=== PATIENT | male | born 1945 | race Asian ===

== ENCOUNTER 2017-09-28 15:37 | Inpatient (IN) | payer MEDICARE ==
[~2017-09-28] VITALS: Ht 170.2 cm; Wt 82.8 kg
[~2017-09-28 15:37] MED LIST: ALBU90OI INH; ALLO100 PO; AMOCLA875 PO; ASPI325 PO; ASPI325EC PO; ASPI81EC PO; ATEN50 PO; ATOR10 PO; Adult Low Dose81 MG PO; Aldactone25 MG PO; BACL10 PO; Bactrim Ds Tab1 EACH PO; CARV25 PO; CEPH500 PO; CILO100 PO; CILO50 PO; CLOP75 PO; COLCRYS0.6 MG PO; CRUTCH3 MISC; Cipro500 MG PO; DOCU100 PO; FLUO10 PO; FURO20 PO; Flonase 0.05% N16 GM; GEMF600 PO; GUAIFENESIN1200 MG PO; Glucotrol Xl5 MG PO; HYDACE10B PO; HYDCHL25 PO; HYDR1TAB94 PO; Humulin N100 UNIT/1 SC; INDO50 PO; INSLI100I SC; INSU7030P SC; INSUASPI SC; INSULANPEN SC; LEVFLO500 PO; LOSA25; LOSA25 PO; LOVA40 PO; Lasix20 MG PO; Lovastatin10 MG; NAPR250 PO; Norco 5-325 Ta1 EACH PO; OMEP20ER PO; PIOG15; PIOG30 PO; POTA10T PO; Pepcid20 MG PO; Percocet 5-3251 EACH PO; ROXICODONE5 MG PO; SILD50TA; SIMV10 PO; SPIR25; SPIR25 PO; SULTRIDS PO; TESTOST CYP; TRAM50 PO; TRAZ100 PO; Tenormin25 MG PO; Ultram50 MG PO; Zithromax250 MG PO; Zocor40 MG PO; Zofran Odt4 MG SL
[2017-09-28 18:37] LABS: BASOPHILS ABSOLUTE AUTO 0.02 K/mm3 (0.00-0.23); BASOPHILS PERCENT AUTO 0 % (0-2); EOSINOPHILS ABSOLUTE AUTO 0.27 K/mm3 (0.00-0.68); EOSINOPHILS PERCENT AUTO 3 % (0-6); Hematocrit 44.1 % (37.0-53.0); Hemoglobin 14.2 g/dL (13.5-17.5); IMMATURE GRAN ABSOLUTE AUTO 0.03 K/mm3 (0.00-0.10); IMMATURE GRAN PERCENT AUTO 0 % (0-1); LYMPHOCYTES ABSOLUTE AUTO 1.04 K/mm3 (0.84-5.20); LYMPHOCYTES PERCENT AUTO 12 % (21-46); MONOCYTES ABSOLUTE AUTO 0.83 K/mm3 (0.16-1.47); MONOCYTES PERCENT AUTO 10 % (4-13); Mean Corpuscular HGB 30.6 pg (26.0-34.0); Mean Corpuscular HGB Conc 32.2 g/dL (31.5-36.5); Mean Corpuscular Volume 95 fL (80-100); Mean Platelet Volume 10.1 fL (9.1-12.4); NEUTROPHILS ABSOLUTE AUTO 6.46 K/mm3 (1.96-9.15); NEUTROPHILS PERCENT AUTO 75 % (41-73); Platelet Count 256 K/mm3 (150-400); RDW Coefficient Variation 13.3 % (11.7-14.2); RDW Standard Deviation 46.1 fL (35.1-46.3); Red Blood Cell Count 4.64 M/mm3 (4.30-5.90); White Blood Cell Count 8.65 K/mm3 (4.00-11.30)
[2017-09-28 18:40] LABS: Albumin, Blood 2.6 g/dL (3.4-5.0); Albumin/Globulin Ratio 0.6 (0.8-1.8); Bilirubin, Total 0.5 mg/dL (0.1-1.0); Bun/Creatinine Ratio 16.7 (12.0-20.0); Creatinine, Blood 1.32 mg/dL (0.60-1.20); Globulin, Blood 4.1 g/dL (2.2-4.0); Potassium, Blood 4.1 mmol/L (3.5-5.5); Total Protein, Blood 6.7 g/dL (6.4-8.2); Troponin I 0.077 ng/mL (0.000-0.040)
[2017-09-28 20:00] LABS: Influenza A Negative (NEGATIVE); Influenza B Negative (NEGATIVE)
[2017-09-29 05:21] LABS: BASOPHILS PERCENT AUTO 0 % (0-2); EOSINOPHILS PERCENT AUTO 0 % (0-6); Hematocrit 43.2 % (37.0-53.0); IMMATURE GRAN ABSOLUTE AUTO 0.01 K/mm3 (0.00-0.10); IMMATURE GRAN PERCENT AUTO 0 % (0-1); LYMPHOCYTES ABSOLUTE AUTO 0.46 K/mm3 (0.84-5.20); LYMPHOCYTES PERCENT AUTO 6 % (21-46); MONOCYTES ABSOLUTE AUTO 0.17 K/mm3 (0.16-1.47); MONOCYTES PERCENT AUTO 2 % (4-13); Mean Corpuscular HGB 30.6 pg (26.0-34.0); Mean Corpuscular HGB Conc 32.4 g/dL (31.5-36.5); Mean Corpuscular Volume 94 fL (80-100); Mean Platelet Volume 9.9 fL (9.1-12.4); NEUTROPHILS ABSOLUTE AUTO 7.28 K/mm3 (1.96-9.15); NEUTROPHILS PERCENT AUTO 92 % (41-73); Platelet Count 242 K/mm3 (150-400); RDW Coefficient Variation 13.3 % (11.7-14.2); RDW Standard Deviation 45.5 fL (35.1-46.3); Red Blood Cell Count 4.58 M/mm3 (4.30-5.90); White Blood Cell Count 7.92 K/mm3 (4.00-11.30)
[2017-09-29 05:38] LABS: Anion Gap 9 mmol/L (6-16); Blood Urea Nitrogen 26 mg/dL (8-24); Bun/Creatinine Ratio 20.6 (12.0-20.0); CO2, Blood 23 mmol/L (21-32); Calcium, Blood 8.3 mg/dL (8.5-10.1); Chloride, Blood 109 mmol/L (98-108); Creatinine, Blood 1.26 mg/dL (0.60-1.20); Glomerular Filtration Rate >60 (60-); Glucose, Blood 217 mg/dL (70-99); Potassium, Blood 4.4 mmol/L (3.5-5.5); Sodium, Blood 141 mmol/L (136-145); Troponin I 0.049 ng/mL (0.000-0.040)
[2017-09-30 04:52] LABS: BASOPHILS ABSOLUTE AUTO 0.03 K/mm3 (0.00-0.23); BASOPHILS PERCENT AUTO 0 % (0-2); EOSINOPHILS ABSOLUTE AUTO 0.24 K/mm3 (0.00-0.68); EOSINOPHILS PERCENT AUTO 2 % (0-6); Hematocrit 43.6 % (37.0-53.0); Hemoglobin 14.2 g/dL (13.5-17.5); IMMATURE GRAN ABSOLUTE AUTO 0.02 K/mm3 (0.00-0.10); IMMATURE GRAN PERCENT AUTO 0 % (0-1); LYMPHOCYTES ABSOLUTE AUTO 1.63 K/mm3 (0.84-5.20); LYMPHOCYTES PERCENT AUTO 15 % (21-46); MONOCYTES ABSOLUTE AUTO 0.76 K/mm3 (0.16-1.47); MONOCYTES PERCENT AUTO 7 % (4-13); Mean Corpuscular HGB 30.6 pg (26.0-34.0); Mean Corpuscular HGB Conc 32.6 g/dL (31.5-36.5); Mean Corpuscular Volume 94 fL (80-100); NEUTROPHILS ABSOLUTE AUTO 8.45 K/mm3 (1.96-9.15); NEUTROPHILS PERCENT AUTO 76 % (41-73); Platelet Count 259 K/mm3 (150-400); RDW Coefficient Variation 13.2 % (11.7-14.2); RDW Standard Deviation 45.2 fL (35.1-46.3); Red Blood Cell Count 4.64 M/mm3 (4.30-5.90); White Blood Cell Count 11.13 K/mm3 (4.00-11.30)
[2017-09-30 05:12] LABS: Bun/Creatinine Ratio 21.2 (12.0-20.0); Creatinine, Blood 1.89 mg/dL (0.60-1.20); Potassium, Blood 4.2 mmol/L (3.5-5.5)
[2017-10-01 06:03] LABS: Bun/Creatinine Ratio 25.9 (12.0-20.0); Calcium, Blood 8.5 mg/dL (8.5-10.1); Creatinine, Blood 2.12 mg/dL (0.60-1.20); Potassium, Blood 5.7 mmol/L (3.5-5.5)
[2017-10-01 11:47] LABS: Bun/Creatinine Ratio 29.1 (12.0-20.0); Calcium, Blood 8.4 mg/dL (8.5-10.1); Creatinine, Blood 2.06 mg/dL (0.60-1.20); Potassium, Blood 5.6 mmol/L (3.5-5.5)
[2017-10-01 12:15] LABS: PCO2 Arterial 51.9 mmHg (35-45); PO2 Arterial 64.7 mmHg (80-100)
[2017-10-02 10:47] LABS: Calcium, Blood 8.5 mg/dL (8.5-10.1); Creatinine, Blood 1.84 mg/dL (0.60-1.20); Potassium, Blood 4.7 mmol/L (3.5-5.5)
[2017-10-02] MEDS ORDERED: Zithromax500 MG PO (12:08)
[2017-10-02] MEDS ORDERED: LEVEMIR FL100 UNIT/1 SC (12:09)
[2017-10-02] MEDS ORDERED: FURO40 PO (12:11)
[2017-10-02] MEDS ORDERED: METO25ER PO (12:12)
[2017-10-02] MEDS ORDERED: PRAV20 PO (12:13)
[2017-10-03 10:02] LABS: Bun/Creatinine Ratio 25.6 (12.0-20.0); Calcium, Blood 8.6 mg/dL (8.5-10.1); Creatinine, Blood 1.68 mg/dL (0.60-1.20); Potassium, Blood 4.8 mmol/L (3.5-5.5)
[2017-10-03] MEDS ORDERED: ASPI81CH PO (15:07)
[2018-09-02] MEDS ORDERED: IBUP400 PO (19:55)
== END 2017-10-04 16:41 | disposition home or self-care (01) | DRG 291 ==
LOC: ER 15:37 → MEDS 19:21 → ER 21:40 → MEDS 21:44 → ENPENDDIS 10-03 10:00 → MEDS 10-04 09:25
PROVIDERS: Emergency Medicine; Hospitalist; Internal Medicine; Physician Assistant
DX: I13.0 Hypertensive heart and chronic kidney disease with heart failure and stage 1 through stage 4 chronic kidney disease, or unspecified chronic kidney disease (principal); I50.33 Acute on chronic diastolic (congestive) heart failure; J96.01 Acute respiratory failure with hypoxia; N17.9 Acute kidney failure, unspecified; N18.1 Chronic kidney disease, stage 1; E11.22 Type 2 diabetes mellitus with diabetic chronic kidney disease; N14.1 Nephropathy induced by other drugs, medicaments and biological substances; T50.2X5A Adverse effect of carbonic-anhydrase inhibitors, benzothiadiazides and other diuretics, initial encounter; F22 Delusional disorders; G47.30 Sleep apnea, unspecified; E87.5 Hyperkalemia; E78.5 Hyperlipidemia, unspecified; E11.51 Type 2 diabetes mellitus with diabetic peripheral angiopathy without gangrene; I35.0 Nonrheumatic aortic (valve) stenosis; Z59.0 Homelessness; Z91.14 Patient's other noncompliance with medication regimen; Z88.5 Allergy status to narcotic agent; Z91.013 Allergy to seafood; Z91.018 Allergy to other foods
CPT/HCPCS: 36415; 36600; 71046; 80048; 80053; 82803; 82947; 83036; 83880; 84145; 84484; 85025; 87070; 87205; 87804; 93005; 93010; 94640; 94660; 94760; 94762; 96374; 96375; 99285; C8929; J0456; J1650; J1815; J1940; J2405; J2930; J7050; Q9957

== ENCOUNTER 2017-10-06 06:56 | Inpatient (IN) | payer MEDICARE ==
[~2017-10-06] VITALS: Ht 170.2 cm; Wt 75.0 kg
[~2017-10-06 06:56] MED LIST changes: +ASPI81CH PO; +FURO40 PO; +LEVEMIR FL100 UNIT/1 SC; +METO25ER PO; +PRAV20 PO; +Zithromax500 MG PO
[2017-10-06 08:27] LABS: BASOPHILS PERCENT AUTO 0 % (0-2); EOSINOPHILS ABSOLUTE AUTO 0.02 K/mm3 (0.00-0.68); EOSINOPHILS PERCENT AUTO 0 % (0-6); Hematocrit 45.2 % (37.0-53.0); Hemoglobin 14.9 g/dL (13.5-17.5); IMMATURE GRAN ABSOLUTE AUTO 0.01 K/mm3 (0.00-0.10); IMMATURE GRAN PERCENT AUTO 0 % (0-1); LYMPHOCYTES ABSOLUTE AUTO 0.58 K/mm3 (0.84-5.20); LYMPHOCYTES PERCENT AUTO 12 % (21-46); MONOCYTES ABSOLUTE AUTO 0.49 K/mm3 (0.16-1.47); MONOCYTES PERCENT AUTO 11 % (4-13); Mean Corpuscular HGB 30.6 pg (26.0-34.0); Mean Corpuscular Volume 93 fL (80-100); NEUTROPHILS ABSOLUTE AUTO 3.58 K/mm3 (1.96-9.15); NEUTROPHILS PERCENT AUTO 77 % (41-73); Platelet Count 152 K/mm3 (150-400); RDW Standard Deviation 43.8 fL (35.1-46.3); Red Blood Cell Count 4.87 M/mm3 (4.30-5.90); White Blood Cell Count 4.68 K/mm3 (4.00-11.30)
[2017-10-06 08:45] LABS: Alanine Aminotransfer (ALT/SGP 75 U/L (12-78); Albumin, Blood 2.4 g/dL (3.4-5.0); Albumin/Globulin Ratio 0.6 (0.8-1.8); Alk Phos 114 U/L (50-136); Anion Gap 7 mmol/L (6-16); Aspartate Aminotrans (AST/SGOT 55 U/L (12-37); Bilirubin, Total 0.6 mg/dL (0.1-1.0); Blood Urea Nitrogen 22 mg/dL (8-24); Bun/Creatinine Ratio 18.5 (12.0-20.0); CO2, Blood 24 mmol/L (21-32); Calcium, Blood 7.9 mg/dL (8.5-10.1); Chloride, Blood 108 mmol/L (98-108); Creatinine, Blood 1.19 mg/dL (0.60-1.20); Globulin, Blood 4.1 g/dL (2.2-4.0); Glomerular Filtration Rate >60 (60-); Glucose, Blood 114 mg/dL (70-99); Potassium, Blood 4.4 mmol/L (3.5-5.5); Sodium, Blood 139 mmol/L (136-145); Total Protein, Blood 6.5 g/dL (6.4-8.2)
[2017-10-06] MEDS ORDERED: ASPI325 PO (15:49)
[2017-10-07 06:02] LABS: Anion Gap 6 mmol/L (6-16); Blood Urea Nitrogen 27 mg/dL (8-24); Bun/Creatinine Ratio 22.7 (12.0-20.0); CO2, Blood 28 mmol/L (21-32); Calcium, Blood 7.4 mg/dL (8.5-10.1); Chloride, Blood 104 mmol/L (98-108); Creatinine, Blood 1.19 mg/dL (0.60-1.20); Glomerular Filtration Rate >60 (60-); Glucose, Blood 133 mg/dL (70-99); Potassium, Blood 3.8 mmol/L (3.5-5.5); Sodium, Blood 138 mmol/L (136-145)
[2017-10-07 19:08] LABS: Influenza A Negative (NEGATIVE); Influenza B Negative (NEGATIVE)
[2017-10-07 22:36] LABS: Source, Urine Clean Catch
[2017-10-07 22:38] LABS: Bilirubin, Urine Neg (Neg); Blood, Urine 2+ (Neg); Glucose Qualitative, Urine Neg (Neg); Ketones, Urine Neg (Neg); Leukocyte Esterase, Urine Neg (Neg); Nitrite, Urine Neg (Neg); Protein, Urine 3+ (Neg); Urobilinogen, Urine NORM (Normal)
[2017-10-07 22:39] LABS: Appearance, Urine Clear (Clear); Color, Urine Yellow (P-Yellow)
[2017-10-07 22:50] LABS: Bacteria Many /hpf; Red Blood Cells, Urine Rare /hpf (0-2); Squamous Epithelial Cells Not Seen /hpf (Few)
[2017-10-08 05:54] LABS: BASOPHILS PERCENT AUTO 0 % (0-2); EOSINOPHILS ABSOLUTE AUTO 0.03 K/mm3 (0.00-0.68); EOSINOPHILS PERCENT AUTO 0 % (0-6); Hematocrit 45.4 % (37.0-53.0); Hemoglobin 14.9 g/dL (13.5-17.5); IMMATURE GRAN ABSOLUTE AUTO 0.02 K/mm3 (0.00-0.10); IMMATURE GRAN PERCENT AUTO 0 % (0-1); LYMPHOCYTES ABSOLUTE AUTO 1.04 K/mm3 (0.84-5.20); LYMPHOCYTES PERCENT AUTO 11 % (21-46); MONOCYTES ABSOLUTE AUTO 0.54 K/mm3 (0.16-1.47); MONOCYTES PERCENT AUTO 6 % (4-13); Mean Corpuscular HGB 30.7 pg (26.0-34.0); Mean Corpuscular HGB Conc 32.8 g/dL (31.5-36.5); Mean Corpuscular Volume 94 fL (80-100); Mean Platelet Volume 10.9 fL (9.1-12.4); NEUTROPHILS ABSOLUTE AUTO 7.56 K/mm3 (1.96-9.15); NEUTROPHILS PERCENT AUTO 82 % (41-73); Platelet Count 147 K/mm3 (150-400); RDW Coefficient Variation 13.1 % (11.7-14.2); RDW Standard Deviation 45.2 fL (35.1-46.3); Red Blood Cell Count 4.85 M/mm3 (4.30-5.90); White Blood Cell Count 9.19 K/mm3 (4.00-11.30)
[2017-10-08 06:24] LABS: Bun/Creatinine Ratio 22.5 (12.0-20.0); Calcium, Blood 7.6 mg/dL (8.5-10.1); Creatinine, Blood 1.42 mg/dL (0.60-1.20); Potassium, Blood 4.1 mmol/L (3.5-5.5)
[2017-10-09 05:15] LABS: Anion Gap 6 mmol/L (6-16); Blood Urea Nitrogen 34 mg/dL (8-24); Bun/Creatinine Ratio 27.2 (12.0-20.0); CO2, Blood 27 mmol/L (21-32); Calcium, Blood 7.9 mg/dL (8.5-10.1); Chloride, Blood 104 mmol/L (98-108); Creatinine, Blood 1.25 mg/dL (0.60-1.20); Glomerular Filtration Rate >60 (60-); Glucose, Blood 131 mg/dL (70-99); Potassium, Blood 4.3 mmol/L (3.5-5.5); Sodium, Blood 137 mmol/L (136-145)
[2017-10-09] MEDS ORDERED: CARV6.25 PO (08:30)
[2017-10-09] MEDS ORDERED: Aspir-Low81 MG PO (08:30)
[2017-10-09] MEDS ORDERED: SPIR25 PO (08:31)
[2018-09-02] MEDS ORDERED: IBUP400 PO (19:55)
== END 2017-10-09 13:45 | disposition home or self-care (01) | DRG 293 ==
LOC: ER 06:56 → ERHOLD 06:57 → MEDS 14:51 → ENPENDDIS 10-09 10:00 → MEDS 10-09 13:45
PROVIDERS: Emergency Medicine; Family Medicine; Internal Medicine
DX: I11.0 Hypertensive heart disease with heart failure (principal); E11.51 Type 2 diabetes mellitus with diabetic peripheral angiopathy without gangrene; Z95.1 Presence of aortocoronary bypass graft; I50.43 Acute on chronic combined systolic (congestive) and diastolic (congestive) heart failure; E78.5 Hyperlipidemia, unspecified; I25.10 Atherosclerotic heart disease of native coronary artery without angina pectoris; F20.9 Schizophrenia, unspecified; Z59.0 Homelessness; Z91.14 Patient's other noncompliance with medication regimen; Z88.5 Allergy status to narcotic agent; Z91.013 Allergy to seafood; Z91.018 Allergy to other foods; Z79.82 Long term (current) use of aspirin; Z79.4 Long term (current) use of insulin; Z79.899 Other long term (current) drug therapy
CPT/HCPCS: 36415; 71045; 71046; 80048; 80053; 81001; 82530; 82947; 83880; 84145; 85025; 87086; 87186; 87804; 93005; 93010; 96372; 96374; 96375; 96376; 99285; C9113; G0378; J1650; J1815; J1940

== ENCOUNTER 2017-10-22 17:42 | Emergency (ER) | payer MEDICARE, OTHER ==
[~2017-10-22] VITALS: Ht 170.2 cm; Wt 74.8 kg
[~2017-10-22 17:42] MED LIST changes: +Aspir-Low81 MG PO; +CARV6.25 PO
[2017-10-22 18:24] LABS: BASOPHILS ABSOLUTE AUTO 0.03 K/mm3 (0.00-0.23); BASOPHILS PERCENT AUTO 0 % (0-2); EOSINOPHILS ABSOLUTE AUTO 0.22 K/mm3 (0.00-0.68); EOSINOPHILS PERCENT AUTO 3 % (0-6); Hemoglobin 13.5 g/dL (13.5-17.5); IMMATURE GRAN ABSOLUTE AUTO 0.02 K/mm3 (0.00-0.10); IMMATURE GRAN PERCENT AUTO 0 % (0-1); LYMPHOCYTES ABSOLUTE AUTO 1.01 K/mm3 (0.84-5.20); LYMPHOCYTES PERCENT AUTO 15 % (21-46); MONOCYTES ABSOLUTE AUTO 0.67 K/mm3 (0.16-1.47); MONOCYTES PERCENT AUTO 10 % (4-13); Mean Corpuscular HGB 30.1 pg (26.0-34.0); Mean Corpuscular HGB Conc 32.1 g/dL (31.5-36.5); Mean Corpuscular Volume 94 fL (80-100); Mean Platelet Volume 10.2 fL (9.1-12.4); NEUTROPHILS ABSOLUTE AUTO 4.85 K/mm3 (1.96-9.15); NEUTROPHILS PERCENT AUTO 71 % (41-73); Platelet Count 241 K/mm3 (150-400); RDW Coefficient Variation 12.9 % (11.7-14.2); Red Blood Cell Count 4.48 M/mm3 (4.30-5.90)
[2017-10-22 18:47] LABS: Alanine Aminotransfer (ALT/SGP 24 U/L (12-78); Albumin, Blood 2.5 g/dL (3.4-5.0); Albumin/Globulin Ratio 0.6 (0.8-1.8); Alk Phos 121 U/L (50-136); Anion Gap 7 mmol/L (6-16); Aspartate Aminotrans (AST/SGOT 34 U/L (12-37); Bilirubin, Total 0.5 mg/dL (0.1-1.0); Blood Urea Nitrogen 31 mg/dL (8-24); Bun/Creatinine Ratio 26.1 (12.0-20.0); CO2, Blood 22 mmol/L (21-32); Calcium, Blood 8.2 mg/dL (8.5-10.1); Chloride, Blood 111 mmol/L (98-108); Creatinine, Blood 1.19 mg/dL (0.60-1.20); Globulin, Blood 4.3 g/dL (2.2-4.0); Glomerular Filtration Rate >60 (60-); Glucose, Blood 214 mg/dL (70-99); Potassium, Blood 4.8 mmol/L (3.5-5.5); Sodium, Blood 140 mmol/L (136-145); Total Protein, Blood 6.8 g/dL (6.4-8.2)
[2017-10-22] MEDS ORDERED: INSDET100 SC (20:36)
[2017-10-22] MEDS ORDERED: Lasix20 MG PO (20:36)
[2017-10-22] MEDS ORDERED: Coreg6.25 MG PO (20:36)
[2017-10-22] MEDS ORDERED: ULTRA-LIGHT RO1 EACH XX (20:37)
[2018-09-02] MEDS ORDERED: IBUP400 PO (19:55)
== END 2017-10-22 21:26 | disposition home or self-care (01) ==
LOC: ER 17:42
PROVIDERS: Physician Assistant
DX: S93.402A Sprain of unspecified ligament of left ankle, initial encounter (principal); E11.65 Type 2 diabetes mellitus with hyperglycemia; F20.9 Schizophrenia, unspecified; I50.9 Heart failure, unspecified; E11.9 Type 2 diabetes mellitus without complications; Z95.1 Presence of aortocoronary bypass graft; Z87.442 Personal history of urinary calculi; Z59.0 Homelessness; Z91.14 Patient's other noncompliance with medication regimen; W01.0XXA Fall on same level from slipping, tripping and stumbling without subsequent striking against object, initial encounter
CPT/HCPCS: 36415; 71046; 73610; 80053; 83880; 85025; 93005; 93010; 96374; 99284; J1940

== ENCOUNTER 2017-10-26 16:01 | Observation (INO) | payer MEDICARE ==
[~2017-10-26] VITALS: Ht 170.2 cm; Wt 82.2 kg
[~2017-10-26 16:01] MED LIST changes: +Coreg6.25 MG PO; +INSDET100 SC; +ULTRA-LIGHT RO1 EACH XX
[2017-10-26 16:34] LABS: BASOPHILS ABSOLUTE AUTO 0.04 K/mm3 (0.00-0.23); BASOPHILS PERCENT AUTO 1 % (0-2); EOSINOPHILS ABSOLUTE AUTO 0.13 K/mm3 (0.00-0.68); EOSINOPHILS PERCENT AUTO 2 % (0-6); Hematocrit 43.6 % (37.0-53.0); Hemoglobin 14.1 g/dL (13.5-17.5); IMMATURE GRAN ABSOLUTE AUTO 0.01 K/mm3 (0.00-0.10); IMMATURE GRAN PERCENT AUTO 0 % (0-1); LYMPHOCYTES ABSOLUTE AUTO 1.07 K/mm3 (0.84-5.20); LYMPHOCYTES PERCENT AUTO 13 % (21-46); MONOCYTES ABSOLUTE AUTO 0.68 K/mm3 (0.16-1.47); MONOCYTES PERCENT AUTO 9 % (4-13); Mean Corpuscular HGB 30.1 pg (26.0-34.0); Mean Corpuscular HGB Conc 32.3 g/dL (31.5-36.5); Mean Corpuscular Volume 93 fL (80-100); Mean Platelet Volume 9.6 fL (9.1-12.4); NEUTROPHILS ABSOLUTE AUTO 6.05 K/mm3 (1.96-9.15); NEUTROPHILS PERCENT AUTO 76 % (41-73); Platelet Count 235 K/mm3 (150-400); RDW Coefficient Variation 13.4 % (11.7-14.2); RDW Standard Deviation 44.8 fL (35.1-46.3); Red Blood Cell Count 4.69 M/mm3 (4.30-5.90); White Blood Cell Count 7.98 K/mm3 (4.00-11.30)
[2017-10-26 16:58] LABS: Albumin, Blood 2.7 g/dL (3.4-5.0); Albumin/Globulin Ratio 0.6 (0.8-1.8); Bilirubin, Total 0.8 mg/dL (0.1-1.0); Bun/Creatinine Ratio 24.8 (12.0-20.0); Calcium, Blood 8.6 mg/dL (8.5-10.1); Creatinine, Blood 1.37 mg/dL (0.60-1.20); Globulin, Blood 4.3 g/dL (2.2-4.0); Potassium, Blood 4.5 mmol/L (3.5-5.5); Troponin I 0.07 ng/mL (0.000-0.040)
[2017-10-27 01:15] LABS: Hematocrit 40.6 % (37.0-53.0); Mean Corpuscular HGB 29.9 pg (26.0-34.0); Mean Corpuscular Volume 93 fL (80-100); Mean Platelet Volume 9.9 fL (9.1-12.4); Platelet Count 194 K/mm3 (150-400); RDW Coefficient Variation 13.2 % (11.7-14.2); RDW Standard Deviation 44.7 fL (35.1-46.3); Red Blood Cell Count 4.35 M/mm3 (4.30-5.90); White Blood Cell Count 6.67 K/mm3 (4.00-11.30)
[2017-10-27 01:32] LABS: Albumin, Blood 2.4 g/dL (3.4-5.0); Anion Gap 8 mmol/L (6-16); Blood Urea Nitrogen 34 mg/dL (8-24); Bun/Creatinine Ratio 23.6 (12.0-20.0); CO2, Blood 26 mmol/L (21-32); Calcium, Blood 8.4 mg/dL (8.5-10.1); Chloride, Blood 109 mmol/L (98-108); Creatinine, Blood 1.44 mg/dL (0.60-1.20); Glomerular Filtration Rate 52 (60-); Glucose, Blood 149 mg/dL (70-99); Magnesium, Blood 1.7 mg/dL (1.6-2.4); Phosphorus, Blood 3.8 mg/dL (2.5-4.9); Sodium, Blood 143 mmol/L (136-145)
[2017-10-27 01:39] LABS: Creatine Kinase MB Index 2.6 (0.0-4.0); Troponin I 0.082 ng/mL (0.000-0.040)
[2017-10-27 01:42] LABS: Thyroid Stimulating Hormone 4.32 uIU/mL (0.360-4.800)
[2017-10-27 09:32] LABS: Creatine Kinase MB 3.6 ng/mL (0.0-3.6); Creatine Kinase MB Index 2.4 (0.0-4.0); Troponin I 0.077 ng/mL (0.000-0.040)
[2017-10-28 06:10] LABS: Bun/Creatinine Ratio 26.5 (12.0-20.0); Calcium, Blood 8.5 mg/dL (8.5-10.1); Creatinine, Blood 1.32 mg/dL (0.60-1.20); Potassium, Blood 3.7 mmol/L (3.5-5.5)
[2017-10-28] MEDS ORDERED: CARV6.25 PO (10:03)
[2017-10-28] MEDS ORDERED: INSU100I6 SC (10:05)
[2017-10-28] MEDS ORDERED: Micro-K10 MEQ PO (10:05)
[2018-09-02] MEDS ORDERED: IBUP400 PO (19:55)
== END 2017-10-28 14:58 | disposition home or self-care (01) ==
LOC: ER 16:01 → MEDS 16:02 → ER 19:12 → MEDS 20:25
PROVIDERS: Emergency Medicine; Internal Medicine
DX: I13.0 Hypertensive heart and chronic kidney disease with heart failure and stage 1 through stage 4 chronic kidney disease, or unspecified chronic kidney disease (principal); I50.41 Acute combined systolic (congestive) and diastolic (congestive) heart failure; E11.22 Type 2 diabetes mellitus with diabetic chronic kidney disease; N17.9 Acute kidney failure, unspecified; E11.51 Type 2 diabetes mellitus with diabetic peripheral angiopathy without gangrene; N18.3 Chronic kidney disease, stage 3 (moderate); E78.5 Hyperlipidemia, unspecified; I25.10 Atherosclerotic heart disease of native coronary artery without angina pectoris; F41.9 Anxiety disorder, unspecified; F20.9 Schizophrenia, unspecified; R79.89 Other specified abnormal findings of blood chemistry; J96.01 Acute respiratory failure with hypoxia; M54.9 Dorsalgia, unspecified; G89.29 Other chronic pain; M10.09 Idiopathic gout, multiple sites; Z88.5 Allergy status to narcotic agent; Z95.1 Presence of aortocoronary bypass graft; Z86.59 Personal history of other mental and behavioral disorders; Z86.69 Personal history of other diseases of the nervous system and sense organs; Z86.14 Personal history of Methicillin resistant Staphylococcus aureus infection; Z86.19 Personal history of other infectious and parasitic diseases; Z98.890 Other specified postprocedural states; Z79.01 Long term (current) use of anticoagulants; Z91.14 Patient's other noncompliance with medication regimen
CPT/HCPCS: 36415; 71045; 80048; 80053; 80069; 82550; 82553; 82947; 83036; 83735; 83880; 84443; 84484; 85025; 85027; 87070; 87077; 87086; 87186; 93005; 93010; 94640; 94644; 94760; 96374; 96375; 99285; G0378; J1650; J1940; J2060

== ENCOUNTER 2017-11-02 15:46 | Emergency (ER) | payer MEDICARE ==
[~2017-11-02] VITALS: Ht 170.2 cm; Wt 74.8 kg
[~2017-11-02 15:46] MED LIST changes: +INSU100I6 SC; +Micro-K10 MEQ PO
[2017-11-02] MEDS ORDERED: CYCL10 PO (16:44)
[2018-09-02] MEDS ORDERED: IBUP400 PO (19:55)
== END 2017-11-02 16:56 | disposition home or self-care (01) ==
LOC: ER 15:46
DX: M25.511 Pain in right shoulder (principal); Z88.8 Allergy status to other drugs, medicaments and biological substances; Z91.013 Allergy to seafood; Z88.5 Allergy status to narcotic agent; Z79.899 Other long term (current) drug therapy; Z79.4 Long term (current) use of insulin; E11.9 Type 2 diabetes mellitus without complications
CPT/HCPCS: 73030; 99283

== ENCOUNTER 2017-11-10 16:54 | Emergency (ER) | payer MEDICARE ==
[~2017-11-10] VITALS: Ht 170.2 cm; Wt 74.8 kg
[~2017-11-10 16:54] MED LIST changes: +CYCL10 PO
[2017-11-10 19:58] LABS: BASOPHILS ABSOLUTE AUTO 0.04 K/mm3 (0.00-0.23); BASOPHILS PERCENT AUTO 1 % (0-2); EOSINOPHILS PERCENT AUTO 3 % (0-6); Hematocrit 43.1 % (37.0-53.0); Hemoglobin 13.8 g/dL (13.5-17.5); IMMATURE GRAN ABSOLUTE AUTO 0.02 K/mm3 (0.00-0.10); IMMATURE GRAN PERCENT AUTO 0 % (0-1); LYMPHOCYTES ABSOLUTE AUTO 0.97 K/mm3 (0.84-5.20); LYMPHOCYTES PERCENT AUTO 12 % (21-46); MONOCYTES ABSOLUTE AUTO 0.61 K/mm3 (0.16-1.47); MONOCYTES PERCENT AUTO 8 % (4-13); Mean Corpuscular HGB 30.2 pg (26.0-34.0); Mean Corpuscular Volume 94 fL (80-100); Mean Platelet Volume 9.8 fL (9.1-12.4); NEUTROPHILS PERCENT AUTO 77 % (41-73); Platelet Count 241 K/mm3 (150-400); RDW Coefficient Variation 13.6 % (11.7-14.2); RDW Standard Deviation 47.3 fL (35.1-46.3); Red Blood Cell Count 4.57 M/mm3 (4.30-5.90); White Blood Cell Count 7.94 K/mm3 (4.00-11.30)
[2017-11-10 20:26] LABS: Albumin, Blood 2.6 g/dL (3.4-5.0); Albumin/Globulin Ratio 0.6 (0.8-1.8); Bilirubin, Total 0.8 mg/dL (0.1-1.0); Bun/Creatinine Ratio 17.3 (12.0-20.0); Calcium, Blood 8.5 mg/dL (8.5-10.1); Creatinine, Blood 1.56 mg/dL (0.60-1.20); Globulin, Blood 4.4 g/dL (2.2-4.0); Potassium, Blood 4.5 mmol/L (3.5-5.5)
[2017-11-10 22:36] LABS: Source, Urine Clean Catch
[2017-11-10 22:48] LABS: Bilirubin, Urine Neg (Neg); Blood, Urine 4+ (Neg); Glucose Qualitative, Urine Neg (Neg); Ketones, Urine Neg (Neg); Leukocyte Esterase, Urine 1+ (Neg); Nitrite, Urine Pos (Neg); Protein, Urine 4+ (Neg); Specific Gravity, Urine 1.015 (1.003-1.022); Urobilinogen, Urine NORM (Normal)
[2017-11-10 22:55] LABS: Appearance, Urine Hazy (Clear); Color, Urine Yellow (P-Yellow)
[2017-11-10 23:00] LABS: Bacteria Many /hpf; Red Blood Cells, Urine 0-2 /hpf (0-2); Squamous Epithelial Cells Few /hpf (Few)
[2017-11-10] MEDS ORDERED: Cipro500 MG PO (23:10)
[2017-11-10] MEDS ORDERED: Lasix20 MG PO (23:10)
[2018-09-02] MEDS ORDERED: IBUP400 PO (19:55)
== END 2017-11-10 23:54 | disposition home or self-care (01) ==
LOC: ER 16:54
PROVIDERS: Emergency Medicine; Physician Assistant
DX: I50.9 Heart failure, unspecified (principal); N39.0 Urinary tract infection, site not specified; R60.0 Localized edema; R05 Cough; E11.9 Type 2 diabetes mellitus without complications; Z88.8 Allergy status to other drugs, medicaments and biological substances; Z91.013 Allergy to seafood; Z88.5 Allergy status to narcotic agent; Z91.018 Allergy to other foods; Z79.4 Long term (current) use of insulin; Z79.899 Other long term (current) drug therapy
CPT/HCPCS: 36415; 71046; 80053; 81001; 83880; 85025; 87077; 87086; 87186; 96374; 99283; J1940

== ENCOUNTER 2017-11-16 15:46 | Emergency (ER) | payer MEDICARE ==
[~2017-11-16] VITALS: Ht 170.2 cm; Wt 75.8 kg
[2017-11-16 16:32] LABS: BASOPHILS ABSOLUTE AUTO 0.02 K/mm3 (0.00-0.23); BASOPHILS PERCENT AUTO 0 % (0-2); EOSINOPHILS ABSOLUTE AUTO 0.24 K/mm3 (0.00-0.68); EOSINOPHILS PERCENT AUTO 3 % (0-6); Hematocrit 40.1 % (37.0-53.0); Hemoglobin 12.5 g/dL (13.5-17.5); IMMATURE GRAN ABSOLUTE AUTO 0.02 K/mm3 (0.00-0.10); IMMATURE GRAN PERCENT AUTO 0 % (0-1); LYMPHOCYTES ABSOLUTE AUTO 0.55 K/mm3 (0.84-5.20); LYMPHOCYTES PERCENT AUTO 6 % (21-46); MONOCYTES ABSOLUTE AUTO 1.02 K/mm3 (0.16-1.47); MONOCYTES PERCENT AUTO 11 % (4-13); Mean Corpuscular HGB 29.5 pg (26.0-34.0); Mean Corpuscular HGB Conc 31.2 g/dL (31.5-36.5); Mean Corpuscular Volume 95 fL (80-100); Mean Platelet Volume 9.5 fL (9.1-12.4); NEUTROPHILS ABSOLUTE AUTO 7.87 K/mm3 (1.96-9.15); NEUTROPHILS PERCENT AUTO 81 % (41-73); Platelet Count 212 K/mm3 (150-400); RDW Coefficient Variation 13.6 % (11.7-14.2); RDW Standard Deviation 47.1 fL (35.1-46.3); Red Blood Cell Count 4.24 M/mm3 (4.30-5.90); White Blood Cell Count 9.72 K/mm3 (4.00-11.30)
[2017-11-16 16:44] LABS: Albumin, Blood 2.2 g/dL (3.4-5.0); Albumin/Globulin Ratio 0.5 (0.8-1.8); Bun/Creatinine Ratio 17.2 (12.0-20.0); Calcium, Blood 8.2 mg/dL (8.5-10.1); Creatinine, Blood 1.34 mg/dL (0.60-1.20); Globulin, Blood 4.8 g/dL (2.2-4.0); Potassium, Blood 3.7 mmol/L (3.5-5.5)
[2017-11-16] MEDS ORDERED: CEPH500 PO (17:55)
[2017-11-16] MEDS ORDERED: Bactrim Ds Tab1 EACH PO (17:55)
[2018-09-02] MEDS ORDERED: IBUP400 PO (19:55)
== END 2017-11-16 18:11 | disposition home or self-care (01) ==
LOC: ER 15:46
PROVIDERS: Emergency Medicine
DX: L03.115 Cellulitis of right lower limb (principal); N39.0 Urinary tract infection, site not specified; Z88.8 Allergy status to other drugs, medicaments and biological substances; Z91.013 Allergy to seafood; Z88.5 Allergy status to narcotic agent; Z91.018 Allergy to other foods; Z79.2 Long term (current) use of antibiotics; Z79.899 Other long term (current) drug therapy; I50.9 Heart failure, unspecified; E11.9 Type 2 diabetes mellitus without complications
CPT/HCPCS: 36415; 80053; 85025; 96365; 99283; J0690

== ENCOUNTER 2017-11-17 10:16 | Emergency (ER) | payer MEDICARE ==
[~2017-11-17] VITALS: Ht 170.2 cm; Wt 74.8 kg
[2018-09-02] MEDS ORDERED: IBUP400 PO (19:55)
== END 2017-11-17 11:35 | disposition home or self-care (01) ==
LOC: ER 10:16
DX: L03.115 Cellulitis of right lower limb (principal); Z88.8 Allergy status to other drugs, medicaments and biological substances; Z90.13 Acquired absence of bilateral breasts and nipples; Z91.018 Allergy to other foods; Z79.899 Other long term (current) drug therapy; Z79.2 Long term (current) use of antibiotics; I50.9 Heart failure, unspecified; E11.9 Type 2 diabetes mellitus without complications
CPT/HCPCS: 99283

== ENCOUNTER 2017-11-24 12:38 | Inpatient (IN) | payer MEDICARE ==
[~2017-11-24] VITALS: Ht 170.2 cm; Wt 74.8 kg
[2017-11-24 13:23] LABS: BASOPHILS ABSOLUTE AUTO 0.04 K/mm3 (0.00-0.23); BASOPHILS PERCENT AUTO 1 % (0-2); EOSINOPHILS ABSOLUTE AUTO 0.17 K/mm3 (0.00-0.68); EOSINOPHILS PERCENT AUTO 2 % (0-6); Hematocrit 39.7 % (37.0-53.0); Hemoglobin 12.5 g/dL (13.5-17.5); IMMATURE GRAN ABSOLUTE AUTO 0.02 K/mm3 (0.00-0.10); IMMATURE GRAN PERCENT AUTO 0 % (0-1); LYMPHOCYTES ABSOLUTE AUTO 0.64 K/mm3 (0.84-5.20); LYMPHOCYTES PERCENT AUTO 8 % (21-46); MONOCYTES ABSOLUTE AUTO 0.51 K/mm3 (0.16-1.47); MONOCYTES PERCENT AUTO 6 % (4-13); Mean Corpuscular HGB 29.4 pg (26.0-34.0); Mean Corpuscular HGB Conc 31.5 g/dL (31.5-36.5); Mean Corpuscular Volume 93 fL (80-100); Mean Platelet Volume 8.8 fL (9.1-12.4); NEUTROPHILS PERCENT AUTO 83 % (41-73); Platelet Count 405 K/mm3 (150-400); RDW Coefficient Variation 13.2 % (11.7-14.2); RDW Standard Deviation 45.7 fL (35.1-46.3); Red Blood Cell Count 4.25 M/mm3 (4.30-5.90); White Blood Cell Count 8.08 K/mm3 (4.00-11.30)
[2017-11-24 13:41] LABS: Alanine Aminotransfer (ALT/SGP 14 U/L (12-78); Albumin, Blood 2.2 g/dL (3.4-5.0); Albumin/Globulin Ratio 0.4 (0.8-1.8); Alk Phos 118 U/L (50-136); Anion Gap 9 mmol/L (6-16); Aspartate Aminotrans (AST/SGOT 23 U/L (12-37); Bilirubin, Total 0.6 mg/dL (0.1-1.0); Blood Urea Nitrogen 18 mg/dL (8-24); Bun/Creatinine Ratio 14.3 (12.0-20.0); CO2, Blood 26 mmol/L (21-32); Calcium, Blood 8.6 mg/dL (8.5-10.1); Chloride, Blood 105 mmol/L (98-108); Creatinine, Blood 1.26 mg/dL (0.60-1.20); Globulin, Blood 4.9 g/dL (2.2-4.0); Glomerular Filtration Rate >60 (60-); Glucose, Blood 103 mg/dL (70-99); Sodium, Blood 140 mmol/L (136-145); Total Protein, Blood 7.1 g/dL (6.4-8.2)
[2017-11-25 05:17] LABS: Albumin, Blood 1.7 g/dL (3.4-5.0); Anion Gap 7 mmol/L (6-16); Blood Urea Nitrogen 24 mg/dL (8-24); Bun/Creatinine Ratio 18.6 (12.0-20.0); CO2, Blood 28 mmol/L (21-32); Calcium, Blood 8.2 mg/dL (8.5-10.1); Chloride, Blood 105 mmol/L (98-108); Creatinine, Blood 1.29 mg/dL (0.60-1.20); Glomerular Filtration Rate 58 (60-); Glucose, Blood 147 mg/dL (70-99); Phosphorus, Blood 3.3 mg/dL (2.5-4.9); Potassium, Blood 4.7 mmol/L (3.5-5.5); Sodium, Blood 140 mmol/L (136-145)
[2017-11-26 04:33] LABS: BASOPHILS ABSOLUTE AUTO 0.02 K/mm3 (0.00-0.23); BASOPHILS PERCENT AUTO 0 % (0-2); EOSINOPHILS ABSOLUTE AUTO 0.24 K/mm3 (0.00-0.68); EOSINOPHILS PERCENT AUTO 4 % (0-6); Hematocrit 38.4 % (37.0-53.0); Hemoglobin 11.8 g/dL (13.5-17.5); IMMATURE GRAN ABSOLUTE AUTO 0.02 K/mm3 (0.00-0.10); IMMATURE GRAN PERCENT AUTO 0 % (0-1); LYMPHOCYTES PERCENT AUTO 10 % (21-46); MONOCYTES ABSOLUTE AUTO 0.59 K/mm3 (0.16-1.47); MONOCYTES PERCENT AUTO 9 % (4-13); Mean Corpuscular HGB 29.1 pg (26.0-34.0); Mean Corpuscular HGB Conc 30.7 g/dL (31.5-36.5); Mean Corpuscular Volume 95 fL (80-100); Mean Platelet Volume 8.9 fL (9.1-12.4); NEUTROPHILS ABSOLUTE AUTO 5.14 K/mm3 (1.96-9.15); NEUTROPHILS PERCENT AUTO 77 % (41-73); Platelet Count 353 K/mm3 (150-400); RDW Coefficient Variation 13.3 % (11.7-14.2); RDW Standard Deviation 47.2 fL (35.1-46.3); Red Blood Cell Count 4.05 M/mm3 (4.30-5.90); White Blood Cell Count 6.71 K/mm3 (4.00-11.30)
[2017-11-26 04:51] LABS: Bun/Creatinine Ratio 21.5 (12.0-20.0); Calcium, Blood 8.7 mg/dL (8.5-10.1); Creatinine, Blood 1.35 mg/dL (0.60-1.20); Potassium, Blood 4.3 mmol/L (3.5-5.5)
[2017-11-29] MEDS ORDERED: CARV6.25 PO (10:03)
[2017-11-29] MEDS ORDERED: FURO20 PO (10:03)
[2017-11-29] MEDS ORDERED: CEPH500 PO (10:03)
[2018-09-02] MEDS ORDERED: IBUP400 PO (19:55)
== END 2017-11-29 12:36 | disposition home or self-care (01) | DRG 603 ==
LOC: ER 12:38 → MEDS 15:19
PROVIDERS: Emergency Medicine; Hospitalist; Pharmacist
DX: L03.115 Cellulitis of right lower limb (principal); E11.22 Type 2 diabetes mellitus with diabetic chronic kidney disease; E11.51 Type 2 diabetes mellitus with diabetic peripheral angiopathy without gangrene; I13.0 Hypertensive heart and chronic kidney disease with heart failure and stage 1 through stage 4 chronic kidney disease, or unspecified chronic kidney disease; I50.42 Chronic combined systolic (congestive) and diastolic (congestive) heart failure; F20.9 Schizophrenia, unspecified; B96.5 Pseudomonas (aeruginosa) (mallei) (pseudomallei) as the cause of diseases classified elsewhere; I25.10 Atherosclerotic heart disease of native coronary artery without angina pectoris; N18.2 Chronic kidney disease, stage 2 (mild); Z88.5 Allergy status to narcotic agent; Z91.013 Allergy to seafood; Z91.018 Allergy to other foods; Z95.1 Presence of aortocoronary bypass graft; Z79.4 Long term (current) use of insulin; Z59.0 Homelessness
CPT/HCPCS: 36415; 80048; 80053; 80069; 80202; 82947; 83880; 85025; 87070; 87075; 87077; 87106; 87186; 87205; 94010; 94664; 94667; 94760; 98960; 99285; J0690; J1650; J1940; J2405; J3370; J7030; J7050

== ENCOUNTER 2018-06-15 16:32 | Emergency (ER) | payer MEDICARE ==
[~2018-06-15] VITALS: Ht 170.2 cm; Wt 72.6 kg
[2018-06-15 18:28] LABS: BASOPHILS ABSOLUTE AUTO 0.06 K/mm3 (0.00-0.23); BASOPHILS PERCENT AUTO 1 % (0-2); EOSINOPHILS ABSOLUTE AUTO 0.41 K/mm3 (0.00-0.68); EOSINOPHILS PERCENT AUTO 6 % (0-6); Hematocrit 46.3 % (37.0-53.0); Hemoglobin 14.9 g/dL (13.5-17.5); IMMATURE GRAN ABSOLUTE AUTO 0.01 K/mm3 (0.00-0.10); IMMATURE GRAN PERCENT AUTO 0 % (0-1); LYMPHOCYTES ABSOLUTE AUTO 1.18 K/mm3 (0.84-5.20); LYMPHOCYTES PERCENT AUTO 16 % (21-46); MONOCYTES PERCENT AUTO 8 % (4-13); Mean Corpuscular HGB 30.7 pg (26.0-34.0); Mean Corpuscular HGB Conc 32.2 g/dL (31.5-36.5); Mean Corpuscular Volume 96 fL (80-100); Mean Platelet Volume 10.1 fL (9.1-12.4); NEUTROPHILS ABSOLUTE AUTO 5.16 K/mm3 (1.96-9.15); NEUTROPHILS PERCENT AUTO 70 % (41-73); Platelet Count 233 K/mm3 (150-400); RDW Coefficient Variation 13.1 % (11.7-14.2); RDW Standard Deviation 45.8 fL (35.1-46.3); Red Blood Cell Count 4.85 M/mm3 (4.30-5.90); White Blood Cell Count 7.42 K/mm3 (4.00-11.30)
[2018-06-15 18:55] LABS: Alanine Aminotransfer (ALT/SGP 29 U/L (12-78); Albumin, Blood 2.9 g/dL (3.4-5.0); Albumin/Globulin Ratio 0.7 (0.8-1.8); Alk Phos 142 U/L (50-136); Anion Gap 6 mmol/L (6-16); Aspartate Aminotrans (AST/SGOT 25 U/L (12-37); Bilirubin, Total 0.5 mg/dL (0.1-1.0); Blood Urea Nitrogen 24 mg/dL (8-24); Bun/Creatinine Ratio 22.6 (12.0-20.0); CO2, Blood 25 mmol/L (21-32); Calcium, Blood 8.4 mg/dL (8.5-10.1); Chloride, Blood 108 mmol/L (98-108); Creatinine, Blood 1.06 mg/dL (0.60-1.20); Globulin, Blood 4.3 g/dL (2.2-4.0); Glomerular Filtration Rate >60 (60-); Glucose, Blood 233 mg/dL (70-99); Sodium, Blood 139 mmol/L (136-145); Total Protein, Blood 7.2 g/dL (6.4-8.2); Troponin I 0.017 ng/mL (0.000-0.040)
[2018-06-15] MEDS ORDERED: ALBU90OI INH (19:03)
[2018-06-15] MEDS ORDERED: Prednisone20 MG PO (19:03)
== END 2018-06-15 19:13 | disposition home or self-care (01) ==
LOC: ER 16:32
PROVIDERS: Emergency Medicine
DX: J40 Bronchitis, not specified as acute or chronic (principal); E11.9 Type 2 diabetes mellitus without complications; I50.9 Heart failure, unspecified; Z91.018 Allergy to other foods; Z91.013 Allergy to seafood; Z88.5 Allergy status to narcotic agent; Z87.442 Personal history of urinary calculi
CPT/HCPCS: 36415; 71046; 80053; 83880; 84484; 85025; 93005; 93010; 94640; 96374; 99284-25; J2930

== ENCOUNTER 2019-03-02 14:58 | Inpatient (IN) | payer MEDICARE ==
[~2019-03-02] VITALS: Ht 170.2 cm; Wt 81.2 kg
[~2019-03-02 14:58] MED LIST changes: +ACET325 PO; +ATOR40TA PO; +AZIT500 PO; +DELTASONE20 MG PO; +IBUP400 PO; +Prednisone20 MG PO; +RISP1 PO
[2019-03-02 15:53] LABS: BASOPHILS ABSOLUTE AUTO 0.01 K/mm3 (0.00-0.23); BASOPHILS PERCENT AUTO 0 % (0-2); EOSINOPHILS ABSOLUTE AUTO 0.13 K/mm3 (0.00-0.68); EOSINOPHILS PERCENT AUTO 2 % (0-6); Hematocrit 47.9 % (37.0-53.0); Hemoglobin 15.8 g/dL (13.5-17.5); IMMATURE GRAN ABSOLUTE AUTO 0.01 K/mm3 (0.00-0.10); IMMATURE GRAN PERCENT AUTO 0 % (0-1); LYMPHOCYTES ABSOLUTE AUTO 0.17 K/mm3 (0.84-5.20); LYMPHOCYTES PERCENT AUTO 2 % (21-46); MONOCYTES ABSOLUTE AUTO 0.52 K/mm3 (0.16-1.47); MONOCYTES PERCENT AUTO 7 % (4-13); Mean Corpuscular HGB 30.7 pg (26.0-34.0); Mean Corpuscular Volume 93 fL (80-100); Mean Platelet Volume 9.9 fL (9.1-12.4); NEUTROPHILS ABSOLUTE AUTO 6.56 K/mm3 (1.96-9.15); NEUTROPHILS PERCENT AUTO 89 % (41-73); Platelet Count 194 K/mm3 (150-400); RDW Coefficient Variation 12.6 % (11.7-14.2); RDW Standard Deviation 43.5 fL (35.1-46.3); Red Blood Cell Count 5.14 M/mm3 (4.30-5.90)
[2019-03-02 16:30] LABS: Alanine Aminotransfer (ALT/SGP 58 U/L (12-78); Albumin, Blood 3.1 g/dL (3.4-5.0); Albumin/Globulin Ratio 0.7 (0.8-1.8); Alk Phos 109 U/L (50-136); Anion Gap 7 mmol/L (6-16); Aspartate Aminotrans (AST/SGOT 50 U/L (12-37); Bilirubin, Total 0.8 mg/dL (0.1-1.0); Blood Urea Nitrogen 20 mg/dL (8-24); Bun/Creatinine Ratio 16.5 (12.0-20.0); CO2, Blood 24 mmol/L (21-32); Calcium, Blood 8.5 mg/dL (8.5-10.1); Chloride, Blood 106 mmol/L (98-108); Creatinine, Blood 1.21 mg/dL (0.60-1.20); Globulin, Blood 4.2 g/dL (2.2-4.0); Glomerular Filtration Rate >60 (60-); Glucose, Blood 205 mg/dL (70-99); Potassium, Blood 3.8 mmol/L (3.5-5.5); Sodium, Blood 137 mmol/L (136-145); Total Protein, Blood 7.3 g/dL (6.4-8.2)
[2019-03-02 21:14] LABS: CHOL/HDL RATIO 3.7; Cholesterol 175 mg/dL (50-200); HDL Cholesterol 47 mg/dL (>39); LDL/HDL RATIO 2.1; Low Density Lipoprotein Chol 100 mg/dL (0-110); Triglycerides 139 mg/dL (30-160); Very Low Density Lipoprot Chol 27 mg/dL (6-32)
[2019-03-02 22:38] LABS: Adenovirus F 40/41 Not Detected (NOT DETECT); Astrovirus Not Detected (NOT DETECT); Campylobacter Sp Not Detected (NOT DETECT); Cryptosporidium Not Detected (NOT DETECT); Cyclospora Cayetanensis Not Detected (NOT DETECT); E. Coli O157 Not Detected (NOT DETECT); Entamoeba Histolytica Not Detected (NOT DETECT); Enteroaggregative E. coli-EAEC Not Detected (NOT DETECT); Enteropathogenic E. coli-EPEC Not Detected (NOT DETECT); Enterotoxigenic E. coli-ETEC Not Detected (NOT DETECT); Giardia Lamblia Not Detected (NOT DETECT); Norovirus GI/GII Not Detected (NOT DETECT); Plesiomonas Shigelloides Not Detected (NOT DETECT); Rotavirus A Detected (NOT DETECT); Salmonella Sp Not Detected (NOT DETECT); Sapovirus Not Detected (NOT DETECT); Shiga Toxin-prod E. coli-STEC Not Detected (NOT DETECT); Shigella/Enteroin E. coli-EIEC Not Detected (NOT DETECT); Vibrio Cholerae Not Detected (NOT DETECT); Vibrio Sp Not Detected (NOT DETECT); Yersinia Enterocolitica Not Detected (NOT DETECT)
[2019-03-03 05:43] LABS: BASOPHILS ABSOLUTE AUTO 0.01 K/mm3 (0.00-0.23); BASOPHILS PERCENT AUTO 0 % (0-2); EOSINOPHILS ABSOLUTE AUTO 0.09 K/mm3 (0.00-0.68); EOSINOPHILS PERCENT AUTO 2 % (0-6); Hematocrit 41.1 % (37.0-53.0); Hemoglobin 13.2 g/dL (13.5-17.5); IMMATURE GRAN ABSOLUTE AUTO 0.01 K/mm3 (0.00-0.10); IMMATURE GRAN PERCENT AUTO 0 % (0-1); LYMPHOCYTES ABSOLUTE AUTO 0.41 K/mm3 (0.84-5.20); LYMPHOCYTES PERCENT AUTO 9 % (21-46); MONOCYTES ABSOLUTE AUTO 0.55 K/mm3 (0.16-1.47); MONOCYTES PERCENT AUTO 12 % (4-13); Mean Corpuscular HGB 30.2 pg (26.0-34.0); Mean Corpuscular HGB Conc 32.1 g/dL (31.5-36.5); Mean Corpuscular Volume 94 fL (80-100); Mean Platelet Volume 9.8 fL (9.1-12.4); NEUTROPHILS ABSOLUTE AUTO 3.46 K/mm3 (1.96-9.15); NEUTROPHILS PERCENT AUTO 76 % (41-73); Platelet Count 149 K/mm3 (150-400); RDW Coefficient Variation 12.9 % (11.7-14.2); RDW Standard Deviation 44.6 fL (35.1-46.3); Red Blood Cell Count 4.37 M/mm3 (4.30-5.90); White Blood Cell Count 4.53 K/mm3 (4.00-11.30)
--- NOTE | 2019-03-03 05:52 | NUR ---
SHIFT SUMMARY PT NEW ADMIT TO FLOOR LAST NIGHT. AOX4 W/GRANDIOSE DELUSIONS, STATES "MY DR VIKRAM WHO'S IN [place] OWNS ALL THE HOSPITALS IN THE [place]," & "WHEN I BECOME PRESIDENT OF THE US I'M GOING TO MAKE SURE THERE ARE ENOUGH JOBS," ALSO REPORTS OWNING "ALL THE [employer], [employer], [employer] & [employer] IN [place]." FOLLOWS DIRECTIONS, IS PLEASANT & COOPERATIVE. VSS. DENIES SOB. REPORTS 03/05 ALLOVER ABD PAIN, MEDICATED 1X W/DILAUDID PER ORDERS. ON CLEAR LIQUID DIET & TOLERATING WELL, HAD JELLO & CHICKEN BROTH W/NO EMESIS OR NAUSEA THIS SHIFT. ABD TENDER TO PALPATION IN [place]. HAD MULTIPLE LIQUID BM WHEN ARRIVING TO FLOOR, SENT SAMPLE BM TO LAB & IT CAME BACK +FOR C. DIFF & ROTAVIRUS. CALLED HOSPITALIST & HE ORDERED 1X DOSE OF IMODIUM, PT HASN'T HAD ANY FURTHER LIQUID BM SINCE MEDICATION. I WILL CONTINUE TO MONITOR PT & CALL LIGHT IN REACH.
[2019-03-03 06:04] LABS: Alanine Aminotransfer (ALT/SGP 40 U/L (12-78); Albumin, Blood 2.3 g/dL (3.4-5.0); Albumin/Globulin Ratio 0.7 (0.8-1.8); Alk Phos 77 U/L (50-136); Anion Gap 4 mmol/L (6-16); Aspartate Aminotrans (AST/SGOT 35 U/L (12-37); Bilirubin, Total 0.5 mg/dL (0.1-1.0); Blood Urea Nitrogen 15 mg/dL (8-24); Bun/Creatinine Ratio 12.7 (12.0-20.0); CO2, Blood 26 mmol/L (21-32); Calcium, Blood 7.2 mg/dL (8.5-10.1); Chloride, Blood 110 mmol/L (98-108); Creatinine, Blood 1.18 mg/dL (0.60-1.20); Globulin, Blood 3.4 g/dL (2.2-4.0); Glomerular Filtration Rate >60 (60-); Glucose, Blood 156 mg/dL (70-99); Potassium, Blood 3.9 mmol/L (3.5-5.5); Sodium, Blood 140 mmol/L (136-145); Total Protein, Blood 5.7 g/dL (6.4-8.2)
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
--- NOTE | 2019-03-03 18:54 | NUR ---
PATIENT POSITIVE FOR C-DIFF AND ROTAVIRUS. MULTIPLE LIQUID BM'S THIS SHIFT, SOME INCONTINENCE. PATIENT HAD A FALL IN THE SHOWER TODAY AND FELL ON R HIP, DR. TREJO AND MILY THE [facility] WERE NOTIFIED OF THIS. PATIENTWITH HX OF SCHIZOPHRENIA, GRANDIOSE DELUSIONS THROUGHOUT THIS SHIFT. VSS, LUNGS DIMINISHED, ON RA. ORAL VANCO TO TREAT C-DIFF. UP TO BSC INDEPENDENTLY, GAIT STEADY. DENIES ANY NAUSEA, TOLERATING CLEAR DIET. CALM AND COOPERATIVE WITH CARE, CALLS APPROPRIATELY FOR ASSISTANCE.
--- NOTE | 2019-03-04 05:48 | NUR ---
SHIFT SUMMARY PT SLEPT WELL T/O NIGHT. AOX4, W/GRANDIOSE DELUSIONS, FOLLOWS DIRECTIONS & IS PLEASANT W/CARE. VSS. DENIES DYSPNEA OR NAUSEA. REPORTS PAIN ALLOVER ABD, HIP & L SHOULDER, MEDICATED 2X W/DILAUDID PER ORDERS. TOLERATING CLEAR LIQUIDS WELL. STILL HAVING LIQUID BM, AT BEGINNING OF SHIFT STOOL WAS DARK BROWN IN COLOR LIKE MUD, THEN PROGRESSED TO A PRASHANT SALMON COLOR & THIS AM IT WAS CLEAR ORANGE. PT STATES "MY STOMACH IS RUMBLING." INDEPENDENTLY TRANSFERS TO BSC, HOWEVER NEEDS ASSISTANCE TO WIPE & CHANGE ATTENDS. CALL LIGHT IS IN REACH & I WILL CONTINUE TO MONITOR.
[2019-03-04 06:43] LABS: BASOPHILS ABSOLUTE AUTO 0.02 K/mm3 (0.00-0.23); BASOPHILS PERCENT AUTO 0 % (0-2); EOSINOPHILS ABSOLUTE AUTO 0.16 K/mm3 (0.00-0.68); EOSINOPHILS PERCENT AUTO 3 % (0-6); Hemoglobin 13.8 g/dL (13.5-17.5); IMMATURE GRAN ABSOLUTE AUTO 0.01 K/mm3 (0.00-0.10); IMMATURE GRAN PERCENT AUTO 0 % (0-1); LYMPHOCYTES ABSOLUTE AUTO 0.77 K/mm3 (0.84-5.20); LYMPHOCYTES PERCENT AUTO 16 % (21-46); MONOCYTES ABSOLUTE AUTO 0.73 K/mm3 (0.16-1.47); MONOCYTES PERCENT AUTO 15 % (4-13); Mean Corpuscular HGB 30.6 pg (26.0-34.0); Mean Corpuscular HGB Conc 32.1 g/dL (31.5-36.5); Mean Corpuscular Volume 95 fL (80-100); Mean Platelet Volume 9.9 fL (9.1-12.4); NEUTROPHILS ABSOLUTE AUTO 3.21 K/mm3 (1.96-9.15); NEUTROPHILS PERCENT AUTO 66 % (41-73); Platelet Count 155 K/mm3 (150-400); RDW Coefficient Variation 12.8 % (11.7-14.2); Red Blood Cell Count 4.51 M/mm3 (4.30-5.90)
[2019-03-04 07:01] LABS: Albumin, Blood 2.4 g/dL (3.4-5.0); Anion Gap 5 mmol/L (6-16); Blood Urea Nitrogen 14 mg/dL (8-24); Bun/Creatinine Ratio 11.1 (12.0-20.0); CO2, Blood 25 mmol/L (21-32); Calcium, Blood 7.5 mg/dL (8.5-10.1); Chloride, Blood 110 mmol/L (98-108); Creatinine, Blood 1.26 mg/dL (0.60-1.20); Glomerular Filtration Rate 60 (60-); Glucose, Blood 129 mg/dL (70-99); Phosphorus, Blood 2.1 mg/dL (2.5-4.9); Potassium, Blood 4.3 mmol/L (3.5-5.5); Sodium, Blood 140 mmol/L (136-145)
--- NOTE | 2019-03-04 18:26 | NUR ---
PATIENT A/OX4, HX OF SCHIZOPHRENIA WITH GRANDIOSE DELUSIONS. PATIENT HAS BEEN AMBULATING IN HALLS INDEPENDENTLY TODAY AND TOLERATING CARDIAC DIET. VSS THIS SHIFT, ON RA. ACHS BLOOD SUGARS, NO COVERAGE NEEDED TODAY. CONITNUES TO HAVE LIQUID BOWEL MOVEMENT, BUT HAS SLOWED SIGNIFICANTLY. DENIES ANY NAUSEA AND ABDOMINAL PAIN HAS IMPROVED. VANCO D/C'D C-DIFF TOXIN WAS NEGATIVE, PATIENT REMAINS IN CONTACT PRECAUTIONS. PLAN FOR POSSIBLE D/C IN AM PER MD NOTE. PATIENT IS HOMELESS AND CURRENTLY LIVES IN HIS CAR. HIS BROTHER MILY WAS AT BEDSIDE TODAY AND PLANS TO PICK PATIENT UP TOMORROW.
--- NOTE | 2019-03-05 04:14 | NUR ---
SHIFT SUMMARY NO ACUTE CHANGES THIS SHIFT. AWAKE ON/OFF T/O NIGHT. AOX4, W/GRANDIOSE DELUSIONS. VSS. DENIES DYSPNEA, NAUSEA, OR ABD PAIN. REPORTED 8/10 PAIN IN L HIP & HEAD LAST NIGHT WHILE PLAYING ON PHONE & W/O ANY NONVERBAL S/S OF PAIN & STATED "I WANT ANOTHER IV IN SO I CAN HAVE THE OTHER PAIN MEDICATION, NOT THE ORAL STUFF." ENCOURAGED HEAT & ICE THERAPY ALONG W/USE OF TYLENOL & AMBULATION, PT REPORTED THESE HELPED HIS PAIN. TOLERATING CARDIAC DIET WELL & HAS HAD MULTIPLE SNACKS T/O NIGHT W/O ANY EMESIS. NO LIQUID BM THIS SHIFT. INDEPENDENT IN ROOM & HAS BEEN INDEPENDENTLY AMBULATING HALLS. CALL LIGHT IN REACH & I WILL CONTINUE TO MONITOR.
[2019-03-05] MEDS ORDERED: Vsl#3 Capsule1 EACH PO (10:08)
[2019-03-05] MEDS ORDERED: CARV6.25 PO (10:08)
--- NOTE | 2019-03-05 10:36 | NUR ---
DISCHARGE PT DISCHARGED TO HOME. CREDIT UNDERWRITER WORKED ON DISCHARGE PAPERWORK AND EXPLAINED DISCHARGE INSTRUCTIONS AND MEDICATIONS TO PT. PT TRANSFERRED TO PRIVATE VEHICLE VIA WHEELCHAIR. PT'S BELONGINGS WITH PT. THIS RN HAD MEDICATED PT FOR ABDOMINAL PAIN EARLIER AND PT REPORTED PAIN WAS BETTER. PT AMBULATED IN THE HALLS WITH FWW ALL MORNING.
--- NOTE | 2019-03-05 10:47 | NUR ---
PT DISCHARGED A0X3. ALL PAPERS REVIEWED AND SIGNED. PT WAS VERY SHORT TEMPERED AND STATED HE WAS NOT HAPPY. PT WALKING INDEPENDENTLY IN ROOM. ALL PERSONAL BELONGINGS WERE GATHERED AND PT ESCORTED VIA WHEEL CHAIR TO [facility]. BROTHER TO TRANSPORT.
== END 2019-03-05 10:25 | disposition home or self-care (01) | DRG 392 ==
LOC: ER 14:58 → MEDS 20:18 → ER 21:08 → MEDS 21:22 → ENPENDDIS 03-05 10:16 → MEDS 03-05 10:25
PROVIDERS: Emergency Medicine; Internal Medicine; Physician Assistant; ADMIT Internal Medicine
DX: A08.0 Rotaviral enteritis (principal); I50.22 Chronic systolic (congestive) heart failure; F20.9 Schizophrenia, unspecified; E11.9 Type 2 diabetes mellitus without complications; I11.0 Hypertensive heart disease with heart failure; Z59.0 Homelessness; I25.10 Atherosclerotic heart disease of native coronary artery without angina pectoris; E78.5 Hyperlipidemia, unspecified; Z95.1 Presence of aortocoronary bypass graft
CPT/HCPCS: 36415; 71046; 73502; 74176; 80053; 80061; 80069; 82947; 83036; 83690; 83880; 85025; 87324; 87507; 89055; 94640; 94760; 96374; 96375; 99285-25; A9270; J1170; J1650; J1815; J2405; J3480; J7030

== ENCOUNTER 2019-04-05 14:19 | Emergency (ER) | payer MEDICARE ==
[~2019-04-05] VITALS: Ht 157.5 cm; Wt 79.4 kg
[~2019-04-05 14:19] MED LIST changes: +Vsl#3 Capsule1 EACH PO
[2019-04-05 15:18] LABS: BASOPHILS ABSOLUTE AUTO 0.05 K/mm3 (0.00-0.23); BASOPHILS PERCENT AUTO 1 % (0-2); EOSINOPHILS ABSOLUTE AUTO 0.31 K/mm3 (0.00-0.68); EOSINOPHILS PERCENT AUTO 4 % (0-6); Hematocrit 45.9 % (37.0-53.0); IMMATURE GRAN ABSOLUTE AUTO 0.01 K/mm3 (0.00-0.10); IMMATURE GRAN PERCENT AUTO 0 % (0-1); LYMPHOCYTES ABSOLUTE AUTO 1.23 K/mm3 (0.84-5.20); LYMPHOCYTES PERCENT AUTO 15 % (21-46); MONOCYTES ABSOLUTE AUTO 0.66 K/mm3 (0.16-1.47); MONOCYTES PERCENT AUTO 8 % (4-13); Mean Corpuscular HGB 30.4 pg (26.0-34.0); Mean Corpuscular HGB Conc 32.7 g/dL (31.5-36.5); Mean Corpuscular Volume 93 fL (80-100); Mean Platelet Volume 9.8 fL (9.1-12.4); NEUTROPHILS ABSOLUTE AUTO 5.72 K/mm3 (1.96-9.15); NEUTROPHILS PERCENT AUTO 72 % (41-73); Platelet Count 215 K/mm3 (150-400); RDW Coefficient Variation 13.2 % (11.7-14.2); RDW Standard Deviation 45.1 fL (35.1-46.3); Red Blood Cell Count 4.93 M/mm3 (4.30-5.90); White Blood Cell Count 7.98 K/mm3 (4.00-11.30)
[2019-04-05] MEDS ORDERED: GLIP5 PO (16:01)
[2019-04-05] MEDS ORDERED: PHOSPHO-TRIN 2250 MG PO (16:02)
== END 2019-04-05 16:24 | disposition home or self-care (01) ==
LOC: ER 14:19
PROVIDERS: Physician Assistant
DX: I71.2 Thoracic aortic aneurysm, without rupture (principal); I50.9 Heart failure, unspecified; E11.9 Type 2 diabetes mellitus without complications; Z87.442 Personal history of urinary calculi; Z88.5 Allergy status to narcotic agent; Z91.013 Allergy to seafood; Z91.018 Allergy to other foods; Z79.899 Other long term (current) drug therapy
CPT/HCPCS: 36415; 85025; 93005; 93010; 99283-25

== ENCOUNTER 2019-04-07 13:21 | Emergency (ER) | payer MEDICARE ==
[~2019-04-07] VITALS: Ht 170.2 cm; Wt 78.0 kg
[~2019-04-07 13:21] MED LIST changes: +GLIP5 PO; +PHOSPHO-TRIN 2250 MG PO
[2019-04-07 14:04] LABS: BASOPHILS ABSOLUTE AUTO 0.05 K/mm3 (0.00-0.23); BASOPHILS PERCENT AUTO 1 % (0-2); EOSINOPHILS ABSOLUTE AUTO 0.25 K/mm3 (0.00-0.68); EOSINOPHILS PERCENT AUTO 3 % (0-6); Hematocrit 46.2 % (37.0-53.0); Hemoglobin 15.2 g/dL (13.5-17.5); IMMATURE GRAN ABSOLUTE AUTO 0.03 K/mm3 (0.00-0.10); IMMATURE GRAN PERCENT AUTO 0 % (0-1); LYMPHOCYTES ABSOLUTE AUTO 1.13 K/mm3 (0.84-5.20); LYMPHOCYTES PERCENT AUTO 14 % (21-46); MONOCYTES ABSOLUTE AUTO 0.58 K/mm3 (0.16-1.47); MONOCYTES PERCENT AUTO 7 % (4-13); Mean Corpuscular HGB 30.5 pg (26.0-34.0); Mean Corpuscular HGB Conc 32.9 g/dL (31.5-36.5); Mean Corpuscular Volume 93 fL (80-100); Mean Platelet Volume 9.5 fL (9.1-12.4); NEUTROPHILS ABSOLUTE AUTO 5.84 K/mm3 (1.96-9.15); NEUTROPHILS PERCENT AUTO 74 % (41-73); Platelet Count 224 K/mm3 (150-400); RDW Coefficient Variation 12.9 % (11.7-14.2); RDW Standard Deviation 44.1 fL (35.1-46.3); Red Blood Cell Count 4.98 M/mm3 (4.30-5.90); White Blood Cell Count 7.88 K/mm3 (4.00-11.30)
[2019-04-07 14:21] LABS: Alanine Aminotransfer (ALT/SGP 27 U/L (12-78); Albumin, Blood 3.1 g/dL (3.4-5.0); Albumin/Globulin Ratio 0.7 (0.8-1.8); Alk Phos 118 U/L (50-136); Anion Gap 5 mmol/L (6-16); Aspartate Aminotrans (AST/SGOT 19 U/L (12-37); Bilirubin, Total 0.5 mg/dL (0.1-1.0); Blood Urea Nitrogen 27 mg/dL (8-24); Bun/Creatinine Ratio 24.3 (12.0-20.0); CO2, Blood 23 mmol/L (21-32); Calcium, Blood 8.9 mg/dL (8.5-10.1); Chloride, Blood 115 mmol/L (98-108); Creatinine, Blood 1.11 mg/dL (0.60-1.20); Globulin, Blood 4.2 g/dL (2.2-4.0); Glomerular Filtration Rate >60 (60-); Glucose, Blood 129 mg/dL (70-99); Potassium, Blood 3.7 mmol/L (3.5-5.5); Sodium, Blood 143 mmol/L (136-145); Total Protein, Blood 7.3 g/dL (6.4-8.2)
[2019-04-07 14:23] LABS: Magnesium, Blood 1.9 mg/dL (1.6-2.4)
== END 2019-04-07 17:35 | disposition home or self-care (01) ==
LOC: ER 13:21
PROVIDERS: Physician Assistant
DX: I71.2 Thoracic aortic aneurysm, without rupture (principal); R10.9 Unspecified abdominal pain; Z91.013 Allergy to seafood; Z88.5 Allergy status to narcotic agent; Z91.018 Allergy to other foods; Z79.899 Other long term (current) drug therapy
CPT/HCPCS: 36415; 71250; 74176; 80053; 83690; 83735; 84484; 85025; 93005; 93010; 96374; 99284-25; J3010

== ENCOUNTER 2019-07-21 15:59 | Emergency (ER) | payer MEDICARE ==
[~2019-07-21] VITALS: Ht 170.2 cm; Wt 74.8 kg
[2019-07-21 16:37] LABS: BASOPHILS ABSOLUTE AUTO 0.05 K/mm3 (0.00-0.23); BASOPHILS PERCENT AUTO 1 % (0-2); EOSINOPHILS ABSOLUTE AUTO 0.27 K/mm3 (0.00-0.68); EOSINOPHILS PERCENT AUTO 3 % (0-6); Hematocrit 45.9 % (37.0-53.0); Hemoglobin 15.2 g/dL (13.5-17.5); IMMATURE GRAN ABSOLUTE AUTO 0.02 K/mm3 (0.00-0.10); IMMATURE GRAN PERCENT AUTO 0 % (0-1); LYMPHOCYTES ABSOLUTE AUTO 1.02 K/mm3 (0.84-5.20); LYMPHOCYTES PERCENT AUTO 12 % (21-46); MONOCYTES ABSOLUTE AUTO 0.59 K/mm3 (0.16-1.47); MONOCYTES PERCENT AUTO 7 % (4-13); Mean Corpuscular HGB 30.5 pg (26.0-34.0); Mean Corpuscular HGB Conc 33.1 g/dL (31.5-36.5); Mean Corpuscular Volume 92 fL (80-100); Mean Platelet Volume 9.6 fL (9.1-12.4); NEUTROPHILS PERCENT AUTO 77 % (41-73); Platelet Count 238 K/mm3 (150-400); RDW Coefficient Variation 12.7 % (11.7-14.2); RDW Standard Deviation 42.8 fL (35.1-46.3); Red Blood Cell Count 4.98 M/mm3 (4.30-5.90); White Blood Cell Count 8.45 K/mm3 (4.00-11.30)
[2019-07-21 16:52] LABS: Albumin, Blood 3.2 g/dL (3.4-5.0); Albumin/Globulin Ratio 0.9 (0.8-1.8); Bilirubin, Total 1.1 mg/dL (0.1-1.0); Bun/Creatinine Ratio 20.5 (12.0-20.0); Calcium, Blood 8.3 mg/dL (8.5-10.1); Creatinine, Blood 1.32 mg/dL (0.60-1.20); Globulin, Blood 3.7 g/dL (2.2-4.0); Potassium, Blood 4.2 mmol/L (3.5-5.5); Total Protein, Blood 6.9 g/dL (6.4-8.2); Troponin I 0.023 ng/mL (0.000-0.040)
[2019-07-21 17:14] LABS: Influenza A Negative (NEGATIVE); Influenza B Negative (NEGATIVE)
[2019-07-21] MEDS ORDERED: ALBU90OI INH (17:34)
[2019-07-21] MEDS ORDERED: BENZ100A PO (17:34)
== END 2019-07-21 17:55 | disposition home or self-care (01) ==
LOC: ER 15:59
PROVIDERS: Physician Assistant
DX: J40 Bronchitis, not specified as acute or chronic (principal); Z88.8 Allergy status to other drugs, medicaments and biological substances; Z91.013 Allergy to seafood; Z88.5 Allergy status to narcotic agent; Z79.899 Other long term (current) drug therapy; I50.9 Heart failure, unspecified; E11.22 Type 2 diabetes mellitus with diabetic chronic kidney disease; N18.9 Chronic kidney disease, unspecified
CPT/HCPCS: 36415; 71046; 80053; 83880; 84484; 85025; 87804; 93005; 93010

== ENCOUNTER 2019-07-30 15:56 | Emergency (ER) | payer MEDICARE ==
[~2019-07-30] VITALS: Ht 170.2 cm; Wt 74.8 kg
[~2019-07-30 15:56] MED LIST changes: +BENZ100A PO
[2019-07-30 16:55] LABS: BASOPHILS ABSOLUTE AUTO 0.06 K/mm3 (0.00-0.23); BASOPHILS PERCENT AUTO 1 % (0-2); EOSINOPHILS PERCENT AUTO 3 % (0-6); Hematocrit 45.7 % (37.0-53.0); Hemoglobin 15.1 g/dL (13.5-17.5); IMMATURE GRAN ABSOLUTE AUTO 0.02 K/mm3 (0.00-0.10); IMMATURE GRAN PERCENT AUTO 0 % (0-1); LYMPHOCYTES ABSOLUTE AUTO 1.43 K/mm3 (0.84-5.20); LYMPHOCYTES PERCENT AUTO 15 % (21-46); MONOCYTES ABSOLUTE AUTO 0.73 K/mm3 (0.16-1.47); MONOCYTES PERCENT AUTO 7 % (4-13); Mean Corpuscular HGB 30.9 pg (26.0-34.0); Mean Corpuscular Volume 94 fL (80-100); Mean Platelet Volume 9.2 fL (9.1-12.4); NEUTROPHILS ABSOLUTE AUTO 7.27 K/mm3 (1.96-9.15); NEUTROPHILS PERCENT AUTO 74 % (41-73); Platelet Count 291 K/mm3 (150-400); RDW Coefficient Variation 12.3 % (11.7-14.2); RDW Standard Deviation 42.9 fL (35.1-46.3); Red Blood Cell Count 4.88 M/mm3 (4.30-5.90); White Blood Cell Count 9.81 K/mm3 (4.00-11.30)
[2019-07-30 17:17] LABS: Alanine Aminotransfer (ALT/SGP 22 U/L (12-78); Albumin/Globulin Ratio 0.7 (0.8-1.8); Alk Phos 143 U/L (50-136); Anion Gap 7 mmol/L (6-16); Aspartate Aminotrans (AST/SGOT 17 U/L (12-37); Bilirubin, Total 0.3 mg/dL (0.1-1.0); Blood Urea Nitrogen 27 mg/dL (8-24); Bun/Creatinine Ratio 23.9 (12.0-20.0); CO2, Blood 23 mmol/L (21-32); Chloride, Blood 108 mmol/L (98-108); Creatinine, Blood 1.13 mg/dL (0.60-1.20); Globulin, Blood 4.6 g/dL (2.2-4.0); Glomerular Filtration Rate >60 (60-); Glucose, Blood 314 mg/dL (70-99); Sodium, Blood 138 mmol/L (136-145); Total Protein, Blood 7.6 g/dL (6.4-8.2)
[2019-07-30] MEDS ORDERED: Tussin Dm Clea118 ML PO (18:43)
[2019-07-30 19:05] LABS: Source, Urine Clean Catch
[2019-07-30 19:10] LABS: Appearance, Urine Clear (Clear); Bilirubin, Urine Neg (Neg); Blood, Urine 2+ (Neg); Color, Urine Yellow (P-Yellow); Glucose Qualitative, Urine 4+ (Neg); Ketones, Urine Neg (Neg); Leukocyte Esterase, Urine Neg (Neg); Nitrite, Urine Neg (Neg); Protein, Urine 3+ (Neg); Specific Gravity, Urine 1.015 (1.003-1.022); Urobilinogen, Urine NORM (Normal)
[2019-07-30 19:18] LABS: Red Blood Cells, Urine 0-2 /hpf (0-2); Squamous Epithelial Cells Few /hpf (Few); White Blood Cells, Urine 0-2 /hpf (0-5)
[2019-07-30 19:19] LABS: Bacteria Few /hpf
== END 2019-07-30 19:00 | disposition home or self-care (01) ==
LOC: ER 15:56
PROVIDERS: Emergency Medicine; Physician Assistant
DX: R05 Cough (principal); I11.0 Hypertensive heart disease with heart failure; I50.9 Heart failure, unspecified; I25.10 Atherosclerotic heart disease of native coronary artery without angina pectoris; E11.9 Type 2 diabetes mellitus without complications; E78.5 Hyperlipidemia, unspecified; F20.9 Schizophrenia, unspecified; Z79.899 Other long term (current) drug therapy; Z79.84 Long term (current) use of oral hypoglycemic drugs
CPT/HCPCS: 36415; 71046; 80053; 81001; 85025; 99283-25

== ENCOUNTER 2019-08-02 08:10 | Emergency (ER) | payer MEDICARE ==
[~2019-08-02] VITALS: Ht 170.2 cm; Wt 74.8 kg
[~2019-08-02 08:10] MED LIST changes: +Tussin Dm Clea118 ML PO
[2019-08-02 08:48] LABS: BASOPHILS ABSOLUTE AUTO 0.04 K/mm3 (0.00-0.23); BASOPHILS PERCENT AUTO 1 % (0-2); EOSINOPHILS ABSOLUTE AUTO 0.22 K/mm3 (0.00-0.68); EOSINOPHILS PERCENT AUTO 3 % (0-6); Hematocrit 44.7 % (37.0-53.0); Hemoglobin 14.9 g/dL (13.5-17.5); IMMATURE GRAN ABSOLUTE AUTO 0.02 K/mm3 (0.00-0.10); IMMATURE GRAN PERCENT AUTO 0 % (0-1); LYMPHOCYTES ABSOLUTE AUTO 1.06 K/mm3 (0.84-5.20); LYMPHOCYTES PERCENT AUTO 12 % (21-46); MONOCYTES ABSOLUTE AUTO 0.58 K/mm3 (0.16-1.47); MONOCYTES PERCENT AUTO 7 % (4-13); Mean Corpuscular HGB 30.6 pg (26.0-34.0); Mean Corpuscular HGB Conc 33.3 g/dL (31.5-36.5); Mean Corpuscular Volume 92 fL (80-100); Mean Platelet Volume 9.1 fL (9.1-12.4); NEUTROPHILS ABSOLUTE AUTO 6.65 K/mm3 (1.96-9.15); NEUTROPHILS PERCENT AUTO 78 % (41-73); Platelet Count 299 K/mm3 (150-400); RDW Coefficient Variation 12.2 % (11.7-14.2); RDW Standard Deviation 41.5 fL (35.1-46.3); Red Blood Cell Count 4.87 M/mm3 (4.30-5.90); White Blood Cell Count 8.57 K/mm3 (4.00-11.30)
[2019-08-02 08:58] LABS: Alanine Aminotransfer (ALT/SGP 20 U/L (12-78); Albumin/Globulin Ratio 0.7 (0.8-1.8); Alk Phos 118 U/L (50-136); Anion Gap 9 mmol/L (6-16); Aspartate Aminotrans (AST/SGOT 16 U/L (12-37); Bilirubin, Total 0.6 mg/dL (0.1-1.0); Blood Urea Nitrogen 26 mg/dL (8-24); Bun/Creatinine Ratio 21.5 (12.0-20.0); CO2, Blood 24 mmol/L (21-32); Calcium, Blood 9.1 mg/dL (8.5-10.1); Chloride, Blood 109 mmol/L (98-108); Creatinine, Blood 1.21 mg/dL (0.60-1.20); Globulin, Blood 4.6 g/dL (2.2-4.0); Glomerular Filtration Rate >60 (60-); Glucose, Blood 177 mg/dL (70-99); Sodium, Blood 142 mmol/L (136-145); Total Protein, Blood 7.6 g/dL (6.4-8.2)
[2019-08-05] MEDS ORDERED: CEPH500 PO (11:10)
== END 2019-08-02 10:34 | disposition home or self-care (01) ==
LOC: ER 08:10
PROVIDERS: Emergency Medicine
DX: I71.4 Abdominal aortic aneurysm, without rupture (principal); E11.9 Type 2 diabetes mellitus without complications; Z87.442 Personal history of urinary calculi; Z91.018 Allergy to other foods; Z91.013 Allergy to seafood; Z88.5 Allergy status to narcotic agent; Z79.899 Other long term (current) drug therapy
CPT/HCPCS: 36415; 71275; 74175; 80053; 85025; 96374-59; 96375-59; 99284-25; J2405; J3010; Q9967

== ENCOUNTER 2019-08-04 13:14 | Emergency (ER) | payer MEDICARE ==
[~2019-08-04] VITALS: Ht 170.2 cm; Wt 74.8 kg
[2019-08-04 14:07] LABS: BASOPHILS ABSOLUTE AUTO 0.04 K/mm3 (0.00-0.23); BASOPHILS PERCENT AUTO 0 % (0-2); EOSINOPHILS ABSOLUTE AUTO 0.26 K/mm3 (0.00-0.68); EOSINOPHILS PERCENT AUTO 3 % (0-6); Hematocrit 45.3 % (37.0-53.0); Hemoglobin 14.9 g/dL (13.5-17.5); IMMATURE GRAN ABSOLUTE AUTO 0.02 K/mm3 (0.00-0.10); IMMATURE GRAN PERCENT AUTO 0 % (0-1); LYMPHOCYTES ABSOLUTE AUTO 1.53 K/mm3 (0.84-5.20); LYMPHOCYTES PERCENT AUTO 16 % (21-46); MONOCYTES ABSOLUTE AUTO 0.77 K/mm3 (0.16-1.47); MONOCYTES PERCENT AUTO 8 % (4-13); Mean Corpuscular HGB 30.8 pg (26.0-34.0); Mean Corpuscular HGB Conc 32.9 g/dL (31.5-36.5); Mean Corpuscular Volume 94 fL (80-100); Mean Platelet Volume 9.1 fL (9.1-12.4); NEUTROPHILS ABSOLUTE AUTO 6.72 K/mm3 (1.96-9.15); NEUTROPHILS PERCENT AUTO 72 % (41-73); Platelet Count 302 K/mm3 (150-400); RDW Coefficient Variation 12.1 % (11.7-14.2); RDW Standard Deviation 42.1 fL (35.1-46.3); Red Blood Cell Count 4.83 M/mm3 (4.30-5.90); White Blood Cell Count 9.34 K/mm3 (4.00-11.30)
[2019-08-04 14:09] LABS: Source, Urine Clean Catch
[2019-08-04 14:12] LABS: Bilirubin, Urine Neg (Neg); Blood, Urine 2+ (Neg); Glucose Qualitative, Urine 2+ (Neg); Ketones, Urine Neg (Neg); Leukocyte Esterase, Urine Neg (Neg); Nitrite, Urine Neg (Neg); Protein, Urine 3+ (Neg); Urobilinogen, Urine NORM (Normal)
[2019-08-04 14:27] LABS: Alanine Aminotransfer (ALT/SGP 21 U/L (12-78); Albumin, Blood 2.9 g/dL (3.4-5.0); Albumin/Globulin Ratio 0.6 (0.8-1.8); Alk Phos 123 U/L (50-136); Anion Gap 7 mmol/L (6-16); Aspartate Aminotrans (AST/SGOT 19 U/L (12-37); Bilirubin, Total 0.2 mg/dL (0.1-1.0); Blood Urea Nitrogen 29 mg/dL (8-24); Bun/Creatinine Ratio 23.4 (12.0-20.0); CO2, Blood 23 mmol/L (21-32); Calcium, Blood 8.9 mg/dL (8.5-10.1); Chloride, Blood 110 mmol/L (98-108); Creatinine, Blood 1.24 mg/dL (0.60-1.20); Globulin, Blood 4.5 g/dL (2.2-4.0); Glomerular Filtration Rate >60 (60-); Glucose, Blood 178 mg/dL (70-99); Potassium, Blood 4.3 mmol/L (3.5-5.5); Sodium, Blood 140 mmol/L (136-145); Total Protein, Blood 7.4 g/dL (6.4-8.2)
[2019-08-04 14:30] LABS: Appearance, Urine Clear (Clear); Color, Urine Yellow (P-Yellow)
[2019-08-04 14:31] LABS: White Blood Cells, Urine 0-2 /hpf (0-5)
[2019-08-04 14:32] LABS: Bacteria Rare /hpf; Red Blood Cells, Urine 0-2 /hpf (0-2); Squamous Epithelial Cells Rare /hpf (Few)
[2019-08-05] MEDS ORDERED: CEPH500 PO (11:10)
== END 2019-08-04 17:11 ==
LOC: ER 13:14
PROVIDERS: Physician Assistant
DX: R10.32 Left lower quadrant pain (principal); R05 Cough; R06.2 Wheezing; E11.9 Type 2 diabetes mellitus without complications; I50.9 Heart failure, unspecified; Z87.442 Personal history of urinary calculi; Z91.018 Allergy to other foods; Z91.013 Allergy to seafood; Z88.5 Allergy status to narcotic agent; Z79.899 Other long term (current) drug therapy
CPT/HCPCS: 36415; 71045; 80053; 81001; 83690; 85025; 94640; 94664; 99284-25

== ENCOUNTER 2019-09-20 20:24 | Emergency (ER) | payer MEDICARE ==
[~2019-09-20] VITALS: Ht 170.2 cm; Wt 74.8 kg
[2019-09-20 20:46] LABS: BASOPHILS ABSOLUTE AUTO 0.06 K/mm3 (0.00-0.23); BASOPHILS PERCENT AUTO 1 % (0-2); EOSINOPHILS ABSOLUTE AUTO 0.12 K/mm3 (0.00-0.68); EOSINOPHILS PERCENT AUTO 1 % (0-6); Hematocrit 47.2 % (37.0-53.0); Hemoglobin 15.8 g/dL (13.5-17.5); IMMATURE GRAN ABSOLUTE AUTO 0.02 K/mm3 (0.00-0.10); IMMATURE GRAN PERCENT AUTO 0 % (0-1); LYMPHOCYTES ABSOLUTE AUTO 1.46 K/mm3 (0.84-5.20); LYMPHOCYTES PERCENT AUTO 13 % (21-46); MONOCYTES ABSOLUTE AUTO 0.98 K/mm3 (0.16-1.47); MONOCYTES PERCENT AUTO 9 % (4-13); Mean Corpuscular HGB 30.4 pg (26.0-34.0); Mean Corpuscular HGB Conc 33.5 g/dL (31.5-36.5); Mean Corpuscular Volume 91 fL (80-100); Mean Platelet Volume 9.1 fL (9.1-12.4); NEUTROPHILS ABSOLUTE AUTO 8.67 K/mm3 (1.96-9.15); NEUTROPHILS PERCENT AUTO 77 % (41-73); Platelet Count 219 K/mm3 (150-400); RDW Coefficient Variation 12.6 % (11.7-14.2); RDW Standard Deviation 41.5 fL (35.1-46.3); White Blood Cell Count 11.31 K/mm3 (4.00-11.30)
[2019-09-20 21:07] LABS: Albumin, Blood 3.4 g/dL (3.4-5.0); Albumin/Globulin Ratio 0.8 (0.8-1.8); Bilirubin, Total 0.6 mg/dL (0.1-1.0); Bun/Creatinine Ratio 19.9 (12.0-20.0); Calcium, Blood 8.9 mg/dL (8.5-10.1); Creatinine, Blood 1.41 mg/dL (0.60-1.20); Globulin, Blood 4.3 g/dL (2.2-4.0); Potassium, Blood 3.8 mmol/L (3.5-5.5); Total Protein, Blood 7.7 g/dL (6.4-8.2); Troponin I 0.018 ng/mL (0.000-0.040)
[2019-09-20] MEDS ORDERED: LISI5 PO (21:41)
[2019-09-22] MEDS ORDERED: IBUP600 PO (17:12)
[2019-09-22] MEDS ORDERED: CYCL10 PO (17:12)
== END 2019-09-21 00:01 | disposition home or self-care (01) ==
LOC: ER 20:24
PROVIDERS: Emergency Medicine
DX: R07.89 Other chest pain (principal); E11.9 Type 2 diabetes mellitus without complications; I50.9 Heart failure, unspecified; Z91.018 Allergy to other foods; Z91.013 Allergy to seafood; Z88.5 Allergy status to narcotic agent; Z79.899 Other long term (current) drug therapy
CPT/HCPCS: 36415; 71046; 80053; 84484; 85025; 93005; 93010; 99285-25

== ENCOUNTER 2019-09-22 00:34 | Emergency (ER) | payer MEDICARE ==
[~2019-09-22] VITALS: Ht 170.2 cm; Wt 74.8 kg
[~2019-09-22 00:34] MED LIST changes: +LISI5 PO
[2019-09-22 02:41] LABS: BASOPHILS ABSOLUTE AUTO 0.04 K/mm3 (0.00-0.23); BASOPHILS PERCENT AUTO 0 % (0-2); EOSINOPHILS ABSOLUTE AUTO 0.21 K/mm3 (0.00-0.68); EOSINOPHILS PERCENT AUTO 2 % (0-6); Hematocrit 47.4 % (37.0-53.0); Hemoglobin 15.9 g/dL (13.5-17.5); IMMATURE GRAN ABSOLUTE AUTO 0.03 K/mm3 (0.00-0.10); IMMATURE GRAN PERCENT AUTO 0 % (0-1); LYMPHOCYTES ABSOLUTE AUTO 1.51 K/mm3 (0.84-5.20); LYMPHOCYTES PERCENT AUTO 16 % (21-46); MONOCYTES ABSOLUTE AUTO 0.84 K/mm3 (0.16-1.47); MONOCYTES PERCENT AUTO 9 % (4-13); Mean Corpuscular HGB 30.5 pg (26.0-34.0); Mean Corpuscular HGB Conc 33.5 g/dL (31.5-36.5); Mean Corpuscular Volume 91 fL (80-100); Mean Platelet Volume 9.2 fL (9.1-12.4); NEUTROPHILS ABSOLUTE AUTO 6.85 K/mm3 (1.96-9.15); NEUTROPHILS PERCENT AUTO 72 % (41-73); Platelet Count 237 K/mm3 (150-400); RDW Standard Deviation 42.5 fL (35.1-46.3); Red Blood Cell Count 5.21 M/mm3 (4.30-5.90); White Blood Cell Count 9.48 K/mm3 (4.00-11.30)
[2019-09-22 02:58] LABS: Albumin, Blood 3.5 g/dL (3.4-5.0); Albumin/Globulin Ratio 0.8 (0.8-1.8); Bilirubin, Total 0.9 mg/dL (0.1-1.0); Bun/Creatinine Ratio 24.3 (12.0-20.0); Calcium, Blood 8.8 mg/dL (8.5-10.1); Creatinine, Blood 1.48 mg/dL (0.60-1.20); Globulin, Blood 4.3 g/dL (2.2-4.0); Total Protein, Blood 7.8 g/dL (6.4-8.2)
[2019-09-22] MEDS ORDERED: IBUP600 PO (17:12)
[2019-09-22] MEDS ORDERED: CYCL10 PO (17:12)
== END 2019-09-22 04:24 | disposition home or self-care (01) ==
LOC: ER 00:34
PROVIDERS: Emergency Medicine
DX: R10.84 Generalized abdominal pain (principal); I50.9 Heart failure, unspecified; E11.9 Type 2 diabetes mellitus without complications; I25.10 Atherosclerotic heart disease of native coronary artery without angina pectoris; F20.9 Schizophrenia, unspecified; Z87.442 Personal history of urinary calculi; Z91.013 Allergy to seafood; Z91.018 Allergy to other foods; Z88.5 Allergy status to narcotic agent; Z79.899 Other long term (current) drug therapy
CPT/HCPCS: 36415; 80053; 83690; 85025; 99284

== ENCOUNTER 2019-09-22 16:34 | Emergency (ER) | payer MEDICARE ==
[~2019-09-22] VITALS: Ht 170.2 cm; Wt 74.8 kg
[2019-09-22] MEDS ORDERED: CYCL10 PO (17:12)
[2019-09-22] MEDS ORDERED: IBUP600 PO (17:12)
== END 2019-09-22 17:30 | disposition home or self-care (01) ==
LOC: ER 16:34
DX: G89.29 Other chronic pain (principal); M54.6 Pain in thoracic spine; I50.9 Heart failure, unspecified; E11.9 Type 2 diabetes mellitus without complications; I25.10 Atherosclerotic heart disease of native coronary artery without angina pectoris; F20.9 Schizophrenia, unspecified; E78.5 Hyperlipidemia, unspecified; Z91.018 Allergy to other foods; Z88.5 Allergy status to narcotic agent; Z79.84 Long term (current) use of oral hypoglycemic drugs; Z79.899 Other long term (current) drug therapy
CPT/HCPCS: 96372; 99283-25; J1885

== ENCOUNTER 2019-09-22 22:07 | Emergency (ER) | payer MEDICARE ==
[~2019-09-22] VITALS: Ht 170.2 cm; Wt 74.8 kg
[~2019-09-22 22:07] MED LIST changes: +IBUP600 PO
== END 2019-09-23 01:11 | disposition home or self-care (01) ==
LOC: ER 22:07
DX: R10.9 Unspecified abdominal pain (principal); I50.9 Heart failure, unspecified; E11.9 Type 2 diabetes mellitus without complications; Z91.018 Allergy to other foods; Z91.013 Allergy to seafood; Z88.5 Allergy status to narcotic agent; Z79.899 Other long term (current) drug therapy; Z79.84 Long term (current) use of oral hypoglycemic drugs
CPT/HCPCS: 93005; 93010; 99284-25

== ENCOUNTER 2019-09-23 17:47 | Emergency (ER) | payer MEDICARE ==
[~2019-09-23] VITALS: Ht 172.7 cm; Wt 81.7 kg
== END 2019-09-23 18:48 | disposition home or self-care (01) ==
LOC: ER 17:47
DX: R07.9 Chest pain, unspecified (principal); G89.29 Other chronic pain; I50.9 Heart failure, unspecified; E11.9 Type 2 diabetes mellitus without complications; I25.10 Atherosclerotic heart disease of native coronary artery without angina pectoris; E78.5 Hyperlipidemia, unspecified; Z91.018 Allergy to other foods; Z88.5 Allergy status to narcotic agent
CPT/HCPCS: 93005; 93010; 99283-25

== ENCOUNTER 2019-09-24 22:15 | Emergency (ER) | payer MEDICARE ==
[~2019-09-24] VITALS: Ht 170.2 cm; Wt 74.8 kg
[2019-09-24 22:48] LABS: BASOPHILS ABSOLUTE AUTO 0.03 K/mm3 (0.00-0.23); BASOPHILS PERCENT AUTO 1 % (0-2); EOSINOPHILS PERCENT AUTO 3 % (0-6); Hematocrit 40.1 % (37.0-53.0); Hemoglobin 13.2 g/dL (13.5-17.5); IMMATURE GRAN PERCENT AUTO 0 % (0-1); LYMPHOCYTES PERCENT AUTO 17 % (21-46); MONOCYTES ABSOLUTE AUTO 0.61 K/mm3 (0.16-1.47); MONOCYTES PERCENT AUTO 10 % (4-13); Mean Corpuscular HGB 30.6 pg (26.0-34.0); Mean Corpuscular HGB Conc 32.9 g/dL (31.5-36.5); Mean Corpuscular Volume 93 fL (80-100); Mean Platelet Volume 9.5 fL (9.1-12.4); NEUTROPHILS PERCENT AUTO 70 % (41-73); Platelet Count 176 K/mm3 (150-400); RDW Coefficient Variation 12.8 % (11.7-14.2); RDW Standard Deviation 43.6 fL (35.1-46.3); Red Blood Cell Count 4.32 M/mm3 (4.30-5.90); White Blood Cell Count 6.04 K/mm3 (4.00-11.30)
[2019-09-24 23:08] LABS: Albumin, Blood 2.8 g/dL (3.4-5.0); Albumin/Globulin Ratio 0.8 (0.8-1.8); Bilirubin, Total 0.3 mg/dL (0.1-1.0); Bun/Creatinine Ratio 26.8 (12.0-20.0); Calcium, Blood 8.1 mg/dL (8.5-10.1); Creatinine, Blood 1.27 mg/dL (0.60-1.20); Globulin, Blood 3.5 g/dL (2.2-4.0); Potassium, Blood 3.9 mmol/L (3.5-5.5); Total Protein, Blood 6.3 g/dL (6.4-8.2); Troponin I 0.023 ng/mL (0.000-0.040)
== END 2019-09-25 00:27 | disposition home or self-care (01) ==
LOC: ER 22:15
PROVIDERS: Emergency Medicine
DX: R07.9 Chest pain, unspecified (principal); G89.29 Other chronic pain; I50.9 Heart failure, unspecified; E11.9 Type 2 diabetes mellitus without complications; I25.2 Old myocardial infarction; E78.5 Hyperlipidemia, unspecified; Z91.018 Allergy to other foods; Z91.013 Allergy to seafood; Z88.5 Allergy status to narcotic agent
CPT/HCPCS: 36415; 80053; 84484; 85025; 93005; 93010; 99284-25

== ENCOUNTER 2019-09-25 12:14 | Emergency (ER) | payer MEDICARE ==
[~2019-09-25] VITALS: Ht 170.2 cm; Wt 74.8 kg
== END 2019-09-25 13:12 | disposition home or self-care (01) ==
LOC: ER 12:14
DX: R53.83 Other fatigue (principal); I50.9 Heart failure, unspecified; E11.9 Type 2 diabetes mellitus without complications; I25.10 Atherosclerotic heart disease of native coronary artery without angina pectoris; E78.5 Hyperlipidemia, unspecified; F20.9 Schizophrenia, unspecified; Z91.018 Allergy to other foods; Z91.013 Allergy to seafood; Z88.5 Allergy status to narcotic agent; X31.XXXA Exposure to excessive natural cold, initial encounter
CPT/HCPCS: 99283

== ENCOUNTER 2019-11-01 19:12 | Emergency (ER) | payer MEDICARE ==
[~2019-11-01] VITALS: Ht 170.2 cm; Wt 72.6 kg
[2019-11-01] MEDS ORDERED: Prednisone20 MG PO (20:57)
[2019-11-01] MEDS ORDERED: Zithromax250 MG PO (20:57)
== END 2019-11-01 21:11 | disposition home or self-care (01) ==
LOC: ER 19:12
DX: J44.1 Chronic obstructive pulmonary disease with (acute) exacerbation (principal); Z91.013 Allergy to seafood; Z91.018 Allergy to other foods; Z88.5 Allergy status to narcotic agent; E11.9 Type 2 diabetes mellitus without complications; I50.9 Heart failure, unspecified; Z95.1 Presence of aortocoronary bypass graft
CPT/HCPCS: 71046; 99283-25; J7512

== ENCOUNTER 2019-11-08 13:34 | Inpatient (IN) | payer MEDICARE ==
[~2019-11-08] VITALS: Ht 170.2 cm; Wt 79.2 kg
[2019-11-08 14:28] LABS: BASOPHILS ABSOLUTE AUTO 0.03 K/mm3 (0.00-0.23); BASOPHILS PERCENT AUTO 0 % (0-2); EOSINOPHILS ABSOLUTE AUTO 0.18 K/mm3 (0.00-0.68); EOSINOPHILS PERCENT AUTO 2 % (0-6); Hematocrit 47.3 % (37.0-53.0); Hemoglobin 15.4 g/dL (13.5-17.5); IMMATURE GRAN ABSOLUTE AUTO 0.03 K/mm3 (0.00-0.10); IMMATURE GRAN PERCENT AUTO 0 % (0-1); LYMPHOCYTES PERCENT AUTO 17 % (21-46); MONOCYTES ABSOLUTE AUTO 0.81 K/mm3 (0.16-1.47); MONOCYTES PERCENT AUTO 10 % (4-13); Mean Corpuscular HGB 30.3 pg (26.0-34.0); Mean Corpuscular HGB Conc 32.6 g/dL (31.5-36.5); Mean Corpuscular Volume 93 fL (80-100); Mean Platelet Volume 9.7 fL (9.1-12.4); NEUTROPHILS ABSOLUTE AUTO 5.95 K/mm3 (1.96-9.15); NEUTROPHILS PERCENT AUTO 71 % (41-73); Platelet Count 230 K/mm3 (150-400); RDW Coefficient Variation 12.6 % (11.7-14.2); RDW Standard Deviation 43.6 fL (35.1-46.3); Red Blood Cell Count 5.09 M/mm3 (4.30-5.90)
[2019-11-08 14:35] LABS: Alanine Aminotransfer (ALT/SGP 29 U/L (12-78); Albumin/Globulin Ratio 0.8 (0.8-1.8); Alk Phos 117 U/L (50-136); Anion Gap 4 mmol/L (6-16); Aspartate Aminotrans (AST/SGOT 19 U/L (12-37); Bilirubin, Total 0.4 mg/dL (0.1-1.0); Blood Urea Nitrogen 26 mg/dL (8-24); Bun/Creatinine Ratio 23.6 (12.0-20.0); CO2, Blood 24 mmol/L (21-32); Calcium, Blood 8.2 mg/dL (8.5-10.1); Chloride, Blood 111 mmol/L (98-108); Globulin, Blood 3.6 g/dL (2.2-4.0); Glomerular Filtration Rate >60 (60-); Glucose, Blood 179 mg/dL (70-99); Potassium, Blood 3.7 mmol/L (3.5-5.5); Sodium, Blood 139 mmol/L (136-145); Total Protein, Blood 6.6 g/dL (6.4-8.2); Troponin I 0.091 ng/mL (0.000-0.040)
[2019-11-08] MEDS ORDERED: CYCL10 PO (15:13)
[2019-11-08] MEDS ORDERED: GLUCOTROL5 MG PO (15:13)
[2019-11-08] MEDS ORDERED: PRINIVIL5 M1 PO ×2 (15:13→15:14)
[2019-11-08] MEDS ORDERED: FUROSEMIDE40 MG PO (15:14)
[2019-11-08] MEDS ORDERED: POTASSIUM CHLO10 MEQ PO (15:14)
[2019-11-08 18:49] LABS: U Amphetamine Screen Not Detected; U Barbituate Screen Not Detected; U Benzodiazapine Screen Not Detected; U Buprenorphine Screen Not Detected; U Cannabinoids Screen Not Detected; U Cocaine Screen Not Detected; U Methadone Screen Not Detected; U Methamphetamine Screen Not Detected; U Opiates Screen Not Detected; U Oxycodone Screen Not Detected; U Propoxyphene Screen Not Detected
--- NOTE | 2019-11-08 23:13 | NUR ---
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
[2019-11-09 04:44] LABS: Hematocrit 45.9 % (37.0-53.0); Hemoglobin 14.9 g/dL (13.5-17.5); Mean Corpuscular HGB 30.4 pg (26.0-34.0); Mean Corpuscular HGB Conc 32.5 g/dL (31.5-36.5); Mean Corpuscular Volume 94 fL (80-100); Mean Platelet Volume 9.9 fL (9.1-12.4); Platelet Count 227 K/mm3 (150-400); RDW Coefficient Variation 12.8 % (11.7-14.2); RDW Standard Deviation 43.8 fL (35.1-46.3); White Blood Cell Count 7.92 K/mm3 (4.00-11.30)
[2019-11-09 05:01] LABS: Anion Gap 8 mmol/L (6-16); Blood Urea Nitrogen 26 mg/dL (8-24); Bun/Creatinine Ratio 22.8 (12.0-20.0); CO2, Blood 25 mmol/L (21-32); Calcium, Blood 8.2 mg/dL (8.5-10.1); Chloride, Blood 106 mmol/L (98-108); Creatinine, Blood 1.14 mg/dL (0.60-1.20); Glomerular Filtration Rate >60 (60-); Glucose, Blood 230 mg/dL (70-99); Potassium, Blood 3.9 mmol/L (3.5-5.5); Sodium, Blood 139 mmol/L (136-145)
--- NOTE | 2019-11-09 12:46 | NUR ---
Echocardiogram performed.
--- NOTE | 2019-11-09 18:23 | NUR ---
SHIFT SUMMARY/COBRA TRANSFER. NO ACUTE NEGATIVE CHANGES NOTED THIS SHIFT. PT DENIES CHEST PAIN/PRESSURE N/V OR SOB. PT HAS BEEN NPO FOR POSSIBLE ANGIO TODAY, HOWEVER PT IS TO BE COBRA TRANSFER TO [facility]. PT ATE 100% OF HIS DINNER. PT HAS BEEN UP TO THE SHOWER AND USES THE URINAL IND AT THE BEDSIDE. PT'S BROTHER WAS CALLED AND NOTIFIED OF THE TRANSFER. NO EVENTS NOTED ON TELE. CALL LIGHT IN REACH WILL CONTINUE TO MONITOR UNTIL REPORT IS GIVEN ON THIS PT.
--- NOTE | 2019-11-09 21:54 | NUR ---
GASTON Vargas, RN CALLED REPORT TO [facility]; REPORT WAS NOT GIVEN TO THIS RN. EMS FOR [facility]SP[facility]; THIS RN GAVE EMS REPORT. PATIENT LEFT WITH BELONGINGS, COBRA PACKET, IV PUMP AND IV MEDICATION FOR SBP ABOVE 160; 2010 VS MAY BE INACCURATE; EMS TOOK VS AND SBP WAS 159. 2X BAGS OF ESMOLOL. DR. ROGERS IN UNIT LOOKING FOR PATIENT AT 2150 AFTER PATIENT LEFT. PATIENT HAD 3 PIV.
== END 2019-11-09 20:50 | disposition short-term general hospital (02) | DRG 281 ==
LOC: ER 13:34 → PCU 13:35
PROVIDERS: Emergency Medicine; Nurse Practitioner Acute Care; ADMIT Internal Medicine
DX: I71.01 Dissection of thoracic aorta (principal); I21.4 Non-ST elevation (NSTEMI) myocardial infarction; I50.42 Chronic combined systolic (congestive) and diastolic (congestive) heart failure; R07.9 Chest pain, unspecified; E78.5 Hyperlipidemia, unspecified; F20.9 Schizophrenia, unspecified; I25.2 Old myocardial infarction; I25.10 Atherosclerotic heart disease of native coronary artery without angina pectoris; E11.51 Type 2 diabetes mellitus with diabetic peripheral angiopathy without gangrene; G47.30 Sleep apnea, unspecified; I11.0 Hypertensive heart disease with heart failure; Z79.84 Long term (current) use of oral hypoglycemic drugs
CPT/HCPCS: 36415; 71046; 71275; 74175; 80048; 80053; 82947; 83880; 84484; 85025; 85027; 85730; 87070; 87081; 87086; 93005; 93010; 93306; 94640; 94760; 96365-59; 96375; 96375-59; 99285-25; A9270; A9270-GY; G0378; J1170; J1644; J2405; J3475; J7030; Q9967

== ENCOUNTER 2020-01-10 17:40 | Observation (INO) | payer MEDICARE ==
[~2020-01-10] VITALS: Ht 170.2 cm; Wt 79.6 kg
[~2020-01-10 17:40] MED LIST changes: +FUROSEMIDE40 MG PO; +GLUCOTROL5 MG PO; +POTASSIUM CHLO10 MEQ PO; +PRINIVIL5 M1 PO
[2020-01-10] MEDS ORDERED: ARTIFICIAL TEAR15 M1 BOTHEYES (18:07)
[2020-01-10] MEDS ORDERED: ATOR80 PO (18:08)
[2020-01-10] MEDS ORDERED: BISA10S PR (18:08)
[2020-01-10] MEDS ORDERED: ASPI81CH PO (18:08)
[2020-01-10] MEDS ORDERED: B-121000 MC3 PO (18:09)
[2020-01-10] MEDS ORDERED: DICLOFENAC SOD100 G1 TOP (18:09)
[2020-01-10] MEDS ORDERED: Humalog100 UNIT/3 SC (18:11)
[2020-01-10] MEDS ORDERED: Q-Tussin100 MG/5 M PO (18:11)
[2020-01-10] MEDS ORDERED: Loratadine10 MG PO (18:11)
[2020-01-10] MEDS ORDERED: MELA3 PO (18:12)
[2020-01-10] MEDS ORDERED: ONDA4ODT MM (18:14)
[2020-01-10] MEDS ORDERED: METF500 PO (18:14)
[2020-01-10] MEDS ORDERED: NITR.4SL SL (18:14)
[2020-01-10] MEDS ORDERED: RISP.5 PO (18:15)
[2020-01-10] MEDS ORDERED: MIRALAX17 GM PO (18:15)
[2020-01-10] MEDS ORDERED: RISP2 PO (18:18)
[2020-01-10] MEDS ORDERED: SENNA PLUS 8.61 EACH PO (18:19)
[2020-01-10] MEDS ORDERED: TRAZ50 PO (18:20)
[2020-01-10] MEDS ORDERED: AYR SALINE (18:20)
[2020-01-10] MEDS ORDERED: LISI5 PO (18:22)
[2020-01-10] MEDS ORDERED: ACET500 PO (18:22)
[2020-01-10] MEDS ORDERED: CARVEDILOL12.5 MG PO (18:22)
[2020-01-10] MEDS ORDERED: ALBU90OI INH (18:23)
--- NOTE | 2020-01-10 18:33 | NUR ---
[facility]- PT ARRIVED TO ROOM 304 VIA GURNEY AT 1730. PT A/O AND INDEP INTO BED. PER [facility] NURSE FROM REPORT PT WAS AT [facility] FOR 61 DAYS FOR AORTIC DISSECTION BUT DID NOT RECEIVE SURGERY DUE TO COVID AT THIS TIME. PER RN PT HAS HAD DELUSIONS AND IS NEEDING GAURDIANSHIP THROUGH THE STATE AND PLACEMENT PT IS HOMELESS. PT INTRODUCED HIMSELF MR PRESIDENT UPON ARRIVAL TO FLOOR. PT DENIES ANY COMPLAINTS. PT UP AMBULATING IN HALLS WITH FWW. DR CRUM AT BEDTIME AT THIS TIME ADMITTING PT.
--- NOTE | 2020-01-11 04:41 | NUR ---
SHIFT SUMMARY PT SLEPT OFF AND ON THIS EVENING. LIKES TO BE UP AND WALKING THE HALLS WHEN AWAKE. PT AT FIRST AGREED TO WEAR A GOWN BUT THEN ONLY WANTED TO WEAR IT IF HE WOULD WEAR IT BACKWARDS LIKE A ROBE SO PT REQUESTED TO REMAIN IN HIS STREET CLOTHES. PT COOPERATIVE OTHERWISE. HAS DELUSIONAL THINKING. TELLS STORIES OF HOW HE "OWNS THE HOSPITAL" AND "IS THE PRESIDENT" AND ALSO "[facility]". PT DID REQUEST SOME MEDICATED CREAM FOR PAIN THAT WAS ORDERED A HOME MED. PT SPENT THE LAST FEW MONTHS AT [facility], SOME TIME BEFORE THEN HERE, AND WAS HOMELESS BEFORE THAT. WILL PASS ON TO DAY RN TO DISCUSS WITH DAY SHIFT HOSPITALIST. TYLENOL GIVEN WITH GOOD EFFECT. OTHERWISE PT HAD UNEVENTFUL NIGHT. VITAL SIGNS STABLE. WILL CONTINUE TO MONITOR AND REPORT TO DAY RN.
--- NOTE | 2020-01-11 10:03 | NUR ---
PT STATES HE HAD A SHOWER YESTERDAY AT [facility] AND DOESN'T WANT TO TAKE ONE TODAY.
--- NOTE | 2020-01-11 17:15 | NUR ---
PATIENT HAS AN UNEVENTFUL SHIFT. HE WALKS THE HALLS OFTEN. HE HAS FREQUENT REQUESTS HOWEVER IS VERY DIFFICULT TO UNDERSTAND: SLURRED SPEECH. SBP IN THE 90s AT BOTH CHECKS THIS SHIFT; COREG HELD. BLOOD SUGAR SEEMS STABLE. DENIES PAIN AND DISCOMFORT. PATIENT IS CURRENTLY LAYING DOWN, RESTING IN BED.
--- NOTE | 2020-01-11 18:50 | NUR ---
ASSUMED CARE RECEIVED REPORT FROM YASMINE CERNA. ASSUMED CARE OF PT. SITTING UP IN BED COMFORTABLY, NO S/S ACUTE DISTRESS NOTED. UP AMBULATING AROUND THE UNIT WITH FWW FREQUENTLY, INTERACTING APPROPRIATELY WITH STAFF. DENIES ANY NEEDS AT THIS TIME. CALL LIGHT, POSSESSIONS IN REACH, WILL CONTINUE TO MONITOR.
--- NOTE | 2020-01-12 07:27 | NUR ---
SHIFT SUMMARY NO ACUTE EVENTS NOTED T/O SHIFT. PT AMBULATING IN [place] OFF AND ON T/O NIGHT. VS STABLE. DENIES ANY NEEDS AT THIS TIME. CALL LIGHT, POSSESSIONS IN REACH, REPORT GIVEN TO DAY RN.
--- NOTE | 2020-01-12 16:57 | NUR ---
PATIENT HAD A TYPICAL DAY FOR HIM. WALKED THE UNIT WITH FWW SEVERAL TIMES THIS SHIFT. HE DENIES PAIN AND DISCOMFORT. HIS BP REMAINS ON THE LOWER SIDE WITH THE SBP IN THE 90's; COREG HELD BOTH @ [address] AL NOTIFIED ABOUT PATIENTS BP AND HOLDING THE COREG. THE PATIENTS BLOOD SUGAR GOT DOWN TO 52 PRIOR TO LUNCH THIS MORNING. HE HAS SOME SNACKS AND AN ENSURE AND IT CAME UP TO THE 80s; HE TENDS TO RUN ON THE LOWER SIDE WITH HIS BLOOD SUGAR. ASIDE FOR THAT, THE PATIENT CONTINUES TO REMAIN AT THE HOSPITAL PENDING PLACEMENT. THE PATIENT IS CURRENTLY IN HIS ROOM RESTING IN HIS BSC. WILL CONTINUE TO MONITOR AND PROVIDE CARE NEEDED.
--- NOTE | 2020-01-12 18:50 | NUR ---
ASSUMED CARE RECEIVED REPORT FROM YASMINE CERNA. ASSUMED CARE OF PT. SITTING IN RECLINER AT THIS TIME, NO ACUTE DISTRESS NOTED, INTERACTING APPROPRIATELY WITH STAFF. DENIES ANY NEEDS AT THIS TIME, CALL LIGHT, POSSESSIONS IN REACH, UP AD MAGALYS. WILL CONTINUE TO MONITOR.
--- NOTE | 2020-01-12 21:58 | NUR ---
2158 THIS RN IN ROOM ADMINISTERING MEDICATIONS TO PT. PT TAKING PO MEDICATIONS ALL AT ONCE WITH A SIP OF WATER. BEGAN COUGHING AND SPUTTERING, ASSISTED PT TO STEADY SELF WITH FWW. ENCOURAGED PT TO CONTINUE COUGHING. WHEN QUESTIONED, PT STATED, "IT WENT DOWN THE WRONG PIPE." PT REPORTS BEING ABLE TO COUGH PILL UP AND SWALLOW IT SAFELY. ENCOURAGED PT TO TAKE FEWER PILLS AT A TIME WHEN HE TAKES MEDICATIONS AGAIN IN THE FUTURE, PT AGREEABLE. BBS CLEAR, RESPS UNLABORED AT THIS TIME. WILL CONTINUE TO MONITOR.
--- NOTE | 2020-01-13 03:52 | NUR ---
SHIFT SUMMARY PT ASLEEP AT THIS TIME, NO ACUTE EVENTS NOTED T/O SHIFT. VS STABLE, AMBULATED IN HALLWAY AD MAGALYS. INTERACTED APPROPRIATELY C STAFF, NO DELUSIONAL EPISODES NOTED. WAS MONITORED EVERY 1-2 HOURS WITH NEEDS MET. DENIES ANY NEEDS AT THIS TIME. CALL LIGHT, POSSESSIONS IN REACH, BED IN LOWEST POSITION. WILL CONTINUE TO MONITOR UNTIL DAY RN ASSUMES CARE.
--- NOTE | 2020-01-13 06:38 | NUR ---
[address] HUNT REGARDING PT'S BLOOD PRESSURE. ORDERS RECEIVED.
--- NOTE | 2020-01-13 16:05 | NUR ---
PATIENT WITH UNEVENTFUL SHIFT. NO ACUTE CHANGES FROM YESTERDAY. VITALS STABLE FOR PATIENT INCLUDING SBP WHICH TENDS TO RUN IN THE 90's. COREG HELD BID AGAIN. PATIENT CONTINUES TO AMBULATE THE HALLS FREQUENTLY WITH FWW. PATIENT IN ROOM EATING A SNACK AT THIS TIME. WILL CONTINUE TO MONITOR AND PROVIDE CARE NEEDED.
--- NOTE | 2020-01-14 05:55 | NUR ---
SHIFT SUMMARY AOX4. HX SCHIZOPHRENIA, NO DELUSIONAL COMMENTS THIS SHIFT. DENIES PAIN, NAUSEA OR DYSPNEA. SLEPT T/O NIGHT. IND AMBULATES HALLS W/FWW WHEN AWAKE. VSS. AWAITING PLACEMENT UNTIL HE CAN RECIEVE SURGERY. CALL LIGHT IN REACH. WCTM.
--- NOTE | 2020-01-14 18:01 | NUR ---
SHIFT SUMMARY PT A&O X3 PLEASENT AND COOPERATIVE. HX SCHIZOPHRENIA. NO ACUTE CHANGES THIS SHIFT. PT UP AMBULATING FREQUENTLY IN HALLWAY INDEPENDENTLY WITH FWW. DISCHARGE PLANNING WORKING ON ESTABLISHING A SAFE DC PLAN.
--- NOTE | 2020-01-14 21:01 | NUR ---
ASSUMED CARE. RODRI IS AOX3, COOPERATIVE. VERY QUIT SPOKEN. WAS UP WALKING THE HALLS WITH WALKER, GAIT WAS STEADY. INDEPENDENT IN THE ROOM. DENIES ANY PAIN OR DISCOMFORT. LUNGS CLEAR, HR REGULAR RYTHEM. DENIES BOWEL OR URINARY PROBLEMS. LOTION APPLIED TO DRY FEET. ADMINISTERED MEDS. CALL LIGHT IN REACH.
--- NOTE | 2020-01-14 22:45 | NUR ---
RODRI IS LAYING DOWN IN HIS BED, EYES WERE CLOSED, DID NOT WAKE UP WHEN DOOR OPENED. CALL LIGHT IN REACH. WILL CONTINUE TO MONITOR.
--- NOTE | 2020-01-15 00:38 | NUR ---
RODRI IS STILL SLEEPING COMFORTABLY, NO SIGNS OF DISTRESS. CALL LIGHT IN REACH.
--- NOTE | 2020-01-15 03:42 | NUR ---
RODRI SLEEPING NO CHANGES.
--- NOTE | 2020-01-15 04:08 | NUR ---
PATIENT AWAKE AND WALKING THE HALLS, DENIES ANY NEEDS AT THIS TIME.
--- NOTE | 2020-01-15 05:19 | NUR ---
SHIFT SUMMARY: RODRI HAS BEEN STABLE THIS SHIFT. VS HAVE BEEN WNL. AFEBRILE. NO PAIN. TOOK MEDS PER EMAR EXCEPT STOOL SOFTNER, WANTED IT IN THE MORNING ONLY. HAS BEEN UP WALKING THE HALLS SEVERAL TIMES THIS SHIFT. SLEPT FOR 1/2 THE SHIFT. AWAITING SOCIAL SERVICE TO WORK OUT A SAFE DISCHARGE PLAN. WILL CONTINUE TO MONITOR TILL SHIFT CHANGE.
--- NOTE | 2020-01-15 17:47 | NUR ---
shift summary PT AXO, COOPERATIVE WITH CARE. NO ACUTE CHANGES THIS SHIFT. PT AMBULATED AROUND THE UNIT FOR THE ENTIRE DAY WITH WALKER IDENPENDENTLY. VSS. PT DENIES PAIN, SOB AND NV. SEE TEACHER EMOTIONALLY IMPAIRED NOTE FROM TODAY. PATIENT OVERHEARD THIS NURSE TALKING ABOUT A HAMBURGER FOR ANOTHER PATIENT AND DEMANDED THAT HE GET ONE FOR DINNER AND THAT HIS TRAY "BETTER NOT HAVE CHICKEN ON IT!" THIS PATIENT HAS BEEF AN ALLERGY AND THEREFORE CANNOT HAVE A HAMBURGER. PATIENT DENIES ALLERGY TO BEEF AT THIS TIME. BED IN LOW POSITION, CALL LIGHT WITHIN REACH.
--- NOTE | 2020-01-15 20:28 | NUR ---
ASSUMED CARE. RODRI HAS BEEN WALKING THE HALLS WITH HIS WALKER SINCE START OF SHIFT. HE IS NOW IN ROOM. DENIES ANY ACUTE CHANGES FROM YESTERDAY. STILL WAITING SAFE DISCHARGE PLAN. TOOK MEDS WITH NO PROBLEM ONE AT A TIME. LOTION PLACED ON FEET. AND THEN HE WAS BACK UP WALKING THE HALLS. ENCOURAGED HIM TO CALL OR ASK IF HE NEEDED ANYTHING.
--- NOTE | 2020-01-15 22:53 | NUR ---
RODRI IS IN BED, SLEEPING. NO DISTRESS NOTED. CALL LIGHT IN REACH.
--- NOTE | 2020-01-16 02:00 | NUR ---
RODRI WAS AWAKE AND WALKING THE HALLS AGAIN. HE DENIED ANY NEEDS OR CONCERNS. HE USED HIS WALKER DID ACOUPLE OF ROUNDS AND THEN WENT BACK TO ROOM AND LAID DOWN.
--- NOTE | 2020-01-16 03:28 | NUR ---
RODRI BACK UP WALKING THE HALLS, DENIES NEEDING ANYTHING. GAIT IS STABLE. WILL CONTINUE TO MONITOR
--- NOTE | 2020-01-16 05:41 | NUR ---
SHIFT SUMMARY: RODRI HAD NO ACUTE CHANGES THIS SHIFT. VITALS REMAINED STABLE. HE WAS UP WALKING THE HALLS SEVERAL TIMES WITH WALKER. NEVER HAD ANY COMPLAINTS. TOOK MEDS PRESCRIBED. WAS PLEASANT AND COOPERATIVE. WILL REPORT TO DAY SHIFT RN.
--- NOTE | 2020-01-16 16:25 | NUR ---
Met with Oswaldo in his room. He is pleasant, smiles easily, and talkative. He is also quite delusional. He tells me that Dr. Eugene is going to be his guardian. He also plans to live with Dr. Eugene upon discharge. He told me about his brother, "Isaac" and said he was sad that he could not live there. He says he feels good and hopes to go home with Dr. Eugene later today. He is non-islam, but allowed me to pray for him. I will remain available.
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
--- NOTE | 2020-01-16 19:00 | NUR ---
ASSUMED CARE RECEIVED REPORT FROM YASMINE GREEN. ASSUMED CARE OF PT. IN ROOM AT THIS TIME WATCHING TV. NO S/S ACUTE DISTRESS NOTED. CALL LIGHT, POSSESSIONS IN REACH. WILL CONTINUE TO MONITOR.
--- NOTE | 2020-01-17 04:15 | NUR ---
SHIFT SUMMARY PT RESTING COMFORTABLY AT THIS TIME, HAD AN UNEVENTFUL NIGHT. WAS MONITORED EVERY 1-2 HOURS WITH NEEDS MET, DENIES NEEDS AT THIS TIME. AMBULATED IN HALLWAYS DESIRED, COMMUNICATED NEEDS AND INTERACTED WITH STAFF APPROPRIATELY. VS STABLE, NO S/S HYPOGLYCEMIA NOTED. REMAINS ASLEEP AT THIS TIME. CALL LIGHT, POSSESSIONS IN REACH, BED IN LOWEST POSITION. WILL CONTINUE TO MONITOR UNTIL DAY RN ASSUMES CARE.
--- NOTE | 2020-01-17 17:32 | NUR ---
PT HAS HAD NO CHANGES THIS SHIFT, THE PT HAS DENIED PAIN THIS SHIFT. PT AMBULATES IN THE HALLWAYS INDEPENTELY AND IS COOPERATIVE WITH CARE. PT HAS TOLORATED MEALS WELL. PT HAS CALL LIGHT WITH IN REACH AND WILL COUNTINUE TO MONITOR AND REPORT TO ON COMING SHIFT.
--- NOTE | 2020-01-18 04:26 | NUR ---
SHIFT SUMMARY NO ACUTE CHANGES SINCE ASSUMING CARE OF PT. PT AMBULATING HALLS IND, DENIES NEEDS. NO C/O PAIN. IND IN ROOM. PLAN IS TO CONTINUE AWAITING GUARDIANSHIP AND PLACEMENT.
--- NOTE | 2020-01-18 18:48 | NUR ---
SHIFT SUMMARY PT HAD NO ACUTE CHANGES THIS SHIFT, PT A&O, AMBULATED THROUGHOUT THE UNIT INDEPENTLY. PT INGRID NAUSEA OR PAIN. PT HAD A VISIT FROM [facility] THIS [place]IFT TO HELP ARRANGE EMERGENCY GUARDIANSHIP FOR THE PT. PT WAS VERY PLEASED WITH HIS VISIT. PT WAS COOPERATIVE WITH CARE. WILL REPORT TO ONCOMING SHIFT, CALL LIGHT WITH IN REACH.
--- NOTE | 2020-01-19 04:06 | NUR ---
SHIFT SUMMARY ASSUMED CARE OF PT AT 1900. PT IS A/OX3 BUT CONFUSED AT TIMES. HEART SOUNDS REGULAR, LUNG SOUNDS DIMINISHED, DENIES CP/SOB AT THIS TIME. PT STATES THAT HE FEELS BETTER THAN YESTERDAY AND WANTS TO GO HOME. PT TOOK WALKS AROUND THE UNIT SEVERAL TIMES, PT STATES THAT HE IS BORED. NO ACUTE EVENTS DURNIG THE NIGHT. PT SLEPT T/O THE NIGHT. CALL LIGHT IN REACH, BED IN LOWEST POSITON, WILL CONTINUE TO MONITOR UNTIL DAYSHIFT NURSE ARRIVES.
--- NOTE | 2020-01-19 15:31 | NUR ---
SHIFT SUMMARY PT IS A/O X 4 WITH NO C/O PAIN. HE APPEARS TO BE AT BASELINE AND WALKS AROUND THE UNIT WITH HIS FWW. HE CONTINUES TO AWAIT SURGERY/PLACEMENT. PT IS ABLE TO MAKE HIS NEEDS KNOWN AND COMMUNICATES WELL WITH NURSING STAFF. HE IS UP WALKING AROUND AND STOPS IN HIS ROOM PERIODICALLY.
--- NOTE | 2020-01-20 06:18 | NUR ---
SHIFT SUMMARY: PATIENT IS A&OX3, VS ARE STABLE, REPORTED NOT SLEEPING WELL AT 0300 TO LATE FOR PRN SLEEP AIDE. REPORTING A HEAD ACHE THIS AM, TYLENOL WAS EFFECTIVE FOR PAIN AND PATIENT IS SLEEPING ON RE ASSESSMENT.
--- NOTE | 2020-01-20 15:48 | NUR ---
SHIFT SUMMARY PT IS A/O X 4 AT BASELINE WITH NO C/O PAIN. HE CONTINUES TO WALK AROUND THE UNTI WITH HIS FWW. HE IS IND IN HIS ROOM AND CALLS FOR HELP WEHN NEEDED. HE CONTINUES TO WAIT FOR PLACEMENT.
--- NOTE | 2020-01-21 04:22 | NUR ---
SHIFT SUMMARY: PT IS ALERT AND ORIENTED. PT IS CALM AND COOPERATIVE WITH CARE. PT IS INDEPENDENT, OUT WALKING THE HALLS FREQUENTLY WITH FWW. PT DENIES PAIN, NAUSEA, VOMITING, AND SOB. PT SLEPT LITTLE OVERNIGHT. NO ACUTE CHANGES OR COMPLICATIONS OVERNIGHT. BED IN LOW POSITION, CALL LIGHT WITHIN REACH. WILL REPORT TO DAY NURSE.
--- NOTE | 2020-01-21 15:38 | NUR ---
SHIFT SUMMARY PT IS A/O X 4 WITH NO C/O PAIN. HE REMAINS IND IN HIS ROOM AND WITH ADLS AND SELF AMBULATES WITH HIS FWW AROUND THE UNIT. HE IS ANXIOUS TO LEAVE TODAY BECUASE HE WOULD LIKE TO GO TO THE BANK TO RAMRÍEZ HIS SS CHECK. HE CALLED HIS APD DANCE HISTORIAN BUT SHE SAID SHE WAS UNABLE TO HELP HIM TODAY. HE WOULD LIKE HELP WITH PLACEMENT AND CARE MANAGEMENT CONTINUES TO WORK ON HIS DC PLAN. PT IS ABLE TO MAKE HIS NEEDS KNOWN AND CALLS FOR HELP WHEN NEEDED.
--- NOTE | 2020-01-21 16:58 | NUR ---
Oswaldo was tearful today. He states his is in senior care and his son has been taken away. He rambles and jump topics often. He is easily redirected, but slips into another irrational topic. He is soft-spoken with a gentle demeanor, and expresses appreciation for companionship and prayer. He reports a strong bridgette in a God who "loves everybody--even Trump." We have an easy rapport and I will continue to see him as schedule permits.
--- NOTE | 2020-01-21 23:52 | NUR ---
3702 STATES UNCOMFORTABLE AND UNABLE TO SLEEP IN THE BED. STATES WANTS TO BUILD A BED ON THE FLOOR. EXPLAINED THAT THIS WOULD NOT BE SAFE. ADIMANT THAT HE WANTS TO SLEEP ON THE FLOOR. PATIENT WENT TO SPEAK WITH EUGENIO HWANG RN.
--- NOTE | 2020-01-22 03:58 | NUR ---
SHIFT SUMMARY A/O, ABLE TO MAKE NEEDS KNOWN. MOSTLY COOPERATIVE WITH CARE. SEE PREV RAINE NOTE. NO C/O PAIN/DISCOMFORT. CALLS APPROPRIATELY. UP INDEPENDENTLY IN ROOM AND HALLS; AMBULATING /c STEADY GAIT USING FWW. VSS/AFEBRILE. CONTINUES TO AWAIT SURGERY AND PLACEMENT. BED IN LOWEST POSITION. CALL LIGHT AND BELONGINGS WITHIN REACH. WCTM. REPORT TO ONCOMING RN.
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
--- NOTE | 2020-01-22 17:05 | NUR ---
PT CONTINUES TO BE AO AND COOPERATIVE OF CARE. PT HAS BEEN AMBULATING ALL DAY. PT TREATED FOR HEADACHE PER EMAR. PT ALSO REQUESTED TO SEE DR AVALOS TELLING HIM OF SOME DIFFENENT FLIGHTS OF FACY TALES HE WANTS DR AVALOS TO CHECK INTO. NO DISTRESS WILL CONTINUE TO MONITOR.
--- NOTE | 2020-01-22 18:55 | NUR ---
ASSUMED CARE RECEIVED REPORT FROM YASMINE CAMPBELL. ASSUMED CARE OF PT. UP AMBULATING AROUND THE UNIT AT THIS TIME, NO ACUTE DISTRESS NOTED. DENIES NEEDS AT THIS TIME. CALL LIGHT, POSSESSIONS IN REACH. WILL CONTINUE TO MONITOR.
--- NOTE | 2020-01-23 01:00 | NUR ---
0100 THIS RN ROUNDING ON PT, ENTERED ROOM TO FIND PT LYING ON THE FLOOR AT FOOT OF BED ON A MAKE-SHIFT BED PT HAD MADE OUT OF A BATH BLANKET AND SOME PILLOWS. THIS RN ASKED PT WHAT THE BED WAS FOR. STATED, "IT'S TO STRETCH MY BACK OUT." ASKED PT IF HE WOULD PREFER TO SLEEP IN THE RECLINER, DECLINED. EXPLAINED TO PT THAT SLEEPING ON THE FLOOR IS HAZARDOUS AND THAT HIS SAFETY IS THE NUMBER ONE PRIORITY. EXPLAINED THAT STAFF DO NOT WANT HARM TO COME TO HIM. PT RE-DIRECTABLE AND COOPERATIVE. ASSISTED PT TO HOSPITAL BED, POSITIONING HOB COMPLETELY FLAT. STATES HE IS COMFORTABLE AT THIS TIME. CALL LIGHT, POSSESSIONS IN REACH. WILL CONTINUE TO MONITOR.
--- NOTE | 2020-01-23 06:09 | NUR ---
SHIFT SUMMARY PT ASLEEP AT THIS TIME, NO S/S ACUTE DISTRESS NOTED. REMAINS IN BED, NO FURTHER ATTEMPTS AT SLEEPING ON THE FLOOR. NO OTHER ACUTE EVENTS NOTED T/O NIGHT. PT COOPERATIVE WITH CARES, MAKES NEEDS KNOWN APPROPRIATELY. CALL LIGHT, POSSESSION IN REACH, BED IN LOWEST POSITION. WILL CONTINUE TO MONITOR UNTIL DAY RN ASSUMES CARE.
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
--- NOTE | 2020-01-24 04:45 | NUR ---
SHIFT SUMMARY ASSUMED CARE OF PT AT 1900. PT IS A/OX3, DENIES N/T IN EXTREMITES. HEART SOUNDS REGULAR, LUNG SOUNDS CLEAR, DENIES SOB/CP AT THIS TIME. PT C/O HEADACHE AT 0430, MEDICATED PER EMAR. PT REQUESTED PILLS TO BE CRUSHED. PT WONDERED AROUND THE HALLWAYS INDEPENDENTLY NO ACUTE EVENTS DURING THE NIGHT. PT DID NOT SLEEP WELL DURING THE NIGHT. CALL LIGHT IN REACH, BED IN LOWEST POSTION, WILL CONTINUE TO MONITOR UNTIL DAYSHIFT NURSE ARRIVES.
--- NOTE | 2020-01-24 12:22 | NUR ---
HE HAS BEEN INTERMITTENTLY AMBULATING THE HALLS ALL MORNING. HE RESTS IN BETWEEN. NEW PAIR OF TEDS PUT ON. HIS CLOTHES ARE BEING WASHED AND DRIED. HE HAS REQUESTED MIRALAX FOR HIS BOWELS AND LATER TYLENOL FOR A H/A.
--- NOTE | 2020-01-24 17:26 | NUR ---
IS WITH HIM AT PRESENT. HERO CONTINUES TO AMBULATE THE HALLS FREQUENTLY. HE EATS WELL AND HAS HAD A FEW SHORT NAPS. HE SAYS THE MIRALAX HASN'T WORKED YET. NO MORE MENTION OF H/A. NO CHANGES IN CONDITION.
--- NOTE | 2020-01-25 04:21 | NUR ---
SHIFT SUMMARY ASSUMED CARE OF PT AT 1900. PT IS A/OX4, DENIES N/T IN EXTREMITES. HEART SOUNDS REGULAR, LUNG SOUNDS CLEAR, DENIES SOB/CP AT THIS TIME. PT REQUESTED HIS MEDICATION TO BE CRUSHED WITH APPLESAUCE. PT WAS ASKED TO NOT BE DISTURBED WHILE HE SLEPT BEUCASE HE HAS DIFFICULTY FALLING BACK ASLEEP. NO ACUTE EVENTS DURING THE NIGHT. PT SLEPT T/O THE NIGHT. CALL LIGHT IN REACH, BED IN LOWEST POSTION, WILL CONTINUE TO MONITOR UNTIL DAYSHIFT NURSE ARRIVES.
--- NOTE | 2020-01-25 17:05 | NUR ---
SUMMARY PT IS A/O X3-4, VERY SOFT SPOKEN, SOMEWHAT FLAT EXPRESSION HOWEVER CALM, PLEASANT, COOPERATIVE. HE PREFERS TO DRESS IN STREET CLOTHES, UP AMBULATING IN ARELLANO w FWW INTERMITTANTLY T/O DAY, GAIT SLOW/SHUFFLING HOWEVER STEADY. HE STATE NO PAIN/DISCOMFORT T/O DAY. HE HAS HAD QUESTIONS/CONCERNS R/T PLACEMENT ADDRESSED BY NETWORK OPERATIONS TECHNICIAN ROMEO Urban, NO PLACEMENT SOLUTIONS @ THIS TIME. VSS, BLOOD SUGAR STABLE. CHEMICAL PLANT OPERATOR SUPERVISOR ASSIST HIM TO SHOWER THIS AM.
--- NOTE | 2020-01-25 21:17 | NUR ---
pt up adlib to hallway via walker with gait slow and steady; denies pain or nausea
--- NOTE | 2020-01-26 06:30 | NUR ---
SHIFT SUMMARY: 74 Y/O MALE RESTED COMFORTABLY ALL SHIFT; DENIES PAIN OR NAUSEA; UP ADLIB TO HALLWAY VIA WALKER WITH GAIT SLOW AND STEADY; HAPPY AND COOPERATIVE; BED LOW POSITION WITH CALL LIGHT AT SIDE.
--- NOTE | 2020-01-26 17:13 | NUR ---
PT AOX4 AND COOPERATIVE OF CARE. PT HAS BEEN DOING HIS LAPSE AROUND THE ARELLANO WITH WALKER. PT WILL DEMAND TO TALK WITH THE DOCTOR MANY TIMES SAYING HE HAS SOME IMPORTANT POLITICAL PERSON HE HAS CONNECTIONS WITH. PT HAS BEEN PLEASANT WILL CONTINUE TO MONITOR.
--- NOTE | 2020-01-27 04:16 | NUR ---
SUMMARY NO ISSUES NOTED. PT WALKED FLOOR FREQUENTLY W/ OUT ISSUE. PT HAS BEEN SLEEPING WELL. PT REQUESTED TO SLEEP ON FLOOR W/ PAD. PT STATED BED IS TO SIFT. PT REPORTED HE IS SLEEPING MUCH BETTER. CALL LIGHT IN REACH. WCTM.
--- NOTE | 2020-01-27 17:09 | NUR ---
PT AO TODAY AND VERY UP BEAT AND PLEASANT ALMOST HAPPY TODAY. PT AMULATING FREQUENTLY WITH WALKER AROUND ARELLANO. NO DISTRESS NOTED WILL CONTINUE TO MONITOR NO CHANGES NOTED.
--- NOTE | 2020-01-27 19:20 | NUR ---
ASSUMED CARE RECEIVED REPORT FROM YASMINE CAMPBELL. ASSUMED CARE OF PT. UP AMBULATING IN HALLWAY AT THIS TIME, NO S/S ACUTE DISTRESS NOTED. WILL CONTINUE TO MONITOR.
--- NOTE | 2020-01-28 04:38 | NUR ---
SHIFT SUMMARY PT ASLEEP AT THIS TIME, HAS BEEN SLEEPING ON MAKE-SHIFT BED AT FOOT OF BED, ENVIRONMENT FREE FROM HARMFUL OBJECTS. PT HAS BEEN IN GOOD SPIRITS T/O NIGHT, AMBULATING FREQUENTLY. CALLS AND MAKES NEEDS KNOWN APPROPRIATELY. NO ACUTE CHANGES NOTED, VS STABLE. DENIES NEEDS AT THIS TIME, CALL LIGHT IN REACH, WILL CONTINUE TO MONITOR UNTIL DAY RN ASSUMES CARE.
--- NOTE | 2020-01-28 17:04 | NUR ---
NO ACUTE CHANGES THIS SHIFT. PATIENT AWAITNING GUARDIANSHIP AND PLACEMENT.
--- NOTE | 2020-01-29 06:44 | NUR ---
01/29/20 0645 PT UP WALKING IN HALLS WITH WALKER. NO COMPLAINTS. VITALS STABLE. UNEVENFUL NIGHT.
--- NOTE | 2020-01-29 15:31 | NUR ---
Patient is walking a loop around the medical floor so I ask patient if I could walk with him. He agrees. He tells me that he is very rich and has bought the house his sister lives in and since she did not let him live with her he will kick her out of the house. Patient also tells me that his life partner is in [employer] and that he is going to break her out. He had many other stories. I listen as we walk and try to keep up with all the players in the stories becuase I have a hunch that some are actually real. I provide companionship and a calming presence. Patient responds well and shows signs of an elevated mood. I will continue to remain available to patient and family.
--- NOTE | 2020-01-29 18:03 | NUR ---
NO ACUTE CHANGES THIS SHIFT. PATIENT AWAITING PLACEMENT.
--- NOTE | 2020-01-29 20:08 | NUR ---
ASSUMED CARE. HERO HAS BEEN WALKING UP AND DOWN THE HALLS WITH HIS WALKER. HE DOES NUMEROUS LABS THROUGHOUT THE DAY AND NIGHT. STATES HE IS DOING VERY WELL. ONLY ASK TO BE COVERED UP WHEN HE FALLS ASLEEP. HAS MADE BED ON THE FLOOR, STATES IT IS MORE COMFORTABLE FOR HIM. BLOOD SUGARS ARE GOOD, MEDS WERE GIVEN CRUSHED IN APPLESAUCE. DENIES ANY PAIN OR DISCOMFORT. CALL LIGHT IN REACH.
--- NOTE | 2020-01-29 21:49 | NUR ---
HERO IS LAYING ON THE FLOOR BED HE MADE WITH FOAM. SURVEY RESEARCH TEACHER ALREADY COVERED HIM UP. NO SIGNS OF DISTRESS WILL CONTINUE TO MONITOR.
--- NOTE | 2020-01-30 00:52 | NUR ---
HERO IS ASLEEP ON THE FLOOR ON TOP OF A FOAM PAD, APPEARS TO BE COMFORTABLE. NO SIGN OF DISTRESS NOTED. WILL CONTINUE TO MONITOR.
--- NOTE | 2020-01-30 05:06 | NUR ---
SHIFT SUMMARY: 74 Y/O ADMITTED FOR DISECTING AORTA. STILL AWAITING FOR GUARDIANSHIP AND PLACEMENT. HE CONTINUES TO BE ACTIVE DURING THE DAY AND NIGHT WALKING LAPS ON THE FLOOR USING THE WALKER. HE DENIES ANY ISSUES OR CONCERNS. VS HAVE BEEN STABLE. NO ACUTE CHANGES,
--- NOTE | 2020-01-30 15:10 | NUR ---
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
--- NOTE | 2020-01-30 16:50 | NUR ---
SHIFT SUMMARY PT AXO TO SELF, PLACE AND FOLLOWING DIRECTIONS. AMBULATING THE HALLWAYS OF THE UNIT FOR THE ENTIRE DAY. SEE NOTE ABOUT PATIENT STATEMENTS TO NURSE THIS SHIFT, GRANDIOSE DELUSIONS. CBG AND INSULIN DC'D THIS SHIFT PER DR LUX. NO ACUTE CHANGES THIS SHIFT. PT REFUSED CLARITIN THIS SHIFT, SAYS "IT'S NOT WORKING." BED IN LOW POSITION, CALL LIGHT WITHIN REACH THOUGH PT PREFERS TO SLEEP ON THE FLOOR. PT DENIES PAIN, NV AND SOB. EAGER TO BE DISCHARGED.
--- NOTE | 2020-01-30 19:20 | NUR ---
ASSUMED CARE. HERO IS UP WALKING THE ARELLANO. 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 HE IS VERY ATTACHED TO THIS IDEA AT THIS MOMENT GOING ON HOW THEY MESSED UP THE HOUSE AND WHEN HE GETS OUT HE GOING TO MAKE THEM FIX IT UP. THEN HE CONTINUES TO WALK AROUND THE HALLS. DENIES ANY NEEDS AT THIS TIME. NO SIGN OF DISTRESS. DISPITE DELUSIONS HE IS COOPERATIVE AND CALM. WILL CONTINUE TO MONITOR.
--- NOTE | 2020-01-30 23:28 | NUR ---
HERO IS AWAKE LAYING ON THE FLOOR IN ROOM. DENIES ANY NEEDS OR COMPLAINTS AT THIS TIME. CALL LIGHT IS IN REACH. WALKER AT SIDE.
--- NOTE | 2020-01-31 05:18 | NUR ---
SHIFT SUMMARY: HERO HAD SOME DULUSIONS AT START OF SHIFT. 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 EVENTUALLY AFTER TAKING HIS MEDS HE LAID DOWN AND SLEPT THROUGHOUT THE NIGHT. VS HAVE REMAINED STABLE. NO ACUTE CHANGES TO NOTE THIS SHIFT.
--- NOTE | 2020-01-31 15:16 | NUR ---
BP 56/53 AT THIS TIME. PT ASYMPTOMATIC AND STATES THAT HE "FEELS FINE" HOLDING CARVEDILOL PER PARAMETERS.
--- NOTE | 2020-01-31 17:34 | NUR ---
SHIFT SUMMARY PT AXO TO SELF, PLACE, FOLLOWING DIRECTIONS, EVENTS THOUGH CONTINUES TO HAVE GRANDIOSE DELUSIONS. VSS. SEE NOTE ABOUT HYPOTENSION AT 1507. NO ACUTE CHANGES THIS SHIFT. PT CONTINUES TO AMBULATE HALLWAYS THROUGHOUT THE SHIFT TODAY.
--- NOTE | 2020-02-01 07:20 | NUR ---
02/01/20 0640 PT AWAKE AND WALKING THE HALLWAYS WITH A WALKER. SLEPT WELL LAST NIGHT. PT PREFERS TO SLEEP ON THE FLOOR. VITALS STABLE.
--- NOTE | 2020-02-01 09:00 | NUR ---
PT QUITE PLEASANT COOP A/O TO SELF, GRANDIOSE DELUSIONS. [facility] IS PRES OF [employer], [facility] HAS FANCY CAR DEALERSHIP OWNERSHIP. TO RICHEST WOMAN IN WORLD. PT CONTOUSLY WALKS HALLS. H/R REG, NO MURMER NOTED. NO TELE. LUNGS CLEAR, RESP EASY, UNLABORED. ON R/A. BT X4 LAST BM PER PT YEST. VOIDS INDEPENANT TO BATHROOM. WALKS HALLWAYS REGULARLY. BED IN LOW POSITION, CALL LITE IN REACH, WALKS TO DOOR FOR ASSISTANTS.
--- NOTE | 2020-02-01 17:20 | NUR ---
PT UP WALKING MOST OF DAY. LIGHT SHOULDER PAIN ADMITTED, MED PER EMAR. PENDING GUARDIANSHIP. 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 CONTINUES TO BE QUITE PLEASANT AND COOP. BED IN LOW POSITION, CALL LITE IN REACH, WALKS TO DOOR FOR ASSISTANCE
--- NOTE | 2020-02-02 04:34 | NUR ---
SHIFT SUMMARY ASSUMED CARE PF PT AT 1900. PT IS A/OX4, BUT IS HAVING GRANDIOSE DELUSIONS. 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 THE PT CONTINUES TO TAKE FREQUENT WALKS AROUND THE HALLS. HEART SOUNDS REGULAR, LUNG SOUNDS CLEAR, DENIES CP/SOB AT THIS TIME. PT SLEPT ON THE FLOOR. PT REFUSED TO HAVE VITALS [place] THIS AM FOR NO PARTICULAR REASON. NO ACUTE EVENTS DURING THE NIGHT. PT SLEPT T/O THE NIGHT. CALL LIGHT IN REACH, BED IN LOWEST POSTION, WILL CONTINUE TO MONITOR UNTIL DAYSHIFT NURSE ARRIVES.
--- NOTE | 2020-02-02 17:23 | NUR ---
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
--- NOTE | 2020-02-03 05:03 | NUR ---
SHIFT SUMMARY ASSUMED CARE OF PT AT 1900. 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 HEART SOUNDS REGULAR, LUNG SOUNDS CLEAR, DENIES SOB/CP. PT C/O HAVING DIARRHEA FROM THE PILLS, STOOL SOFTENERS HELD. PT WALKED AROUND THE UNIT WITH A CANE TODAY. PT STATES THAT HE WAS VERY UPSET WITH THE DOCTORS HERE AND THAT THEY DON'T SIT DOWN TO TALK WITH HIM AT ALL. NO ACUTE EVENTS DURING THE NIGHT. PT SLEPT T/O THE NIGHT. CALL LIGHT IN REACH, BED IN LOWEST POSTION, WILL CONTINUE TO MONITOR UNTIL DAYSHIFT NURSE ARRIVES.
--- NOTE | 2020-02-03 07:17 | NUR ---
ASSUMED PATIENT CARE. PATIENT AMBULATING IN HALLWAY WITH CANE, NO SIGNS OF ACUTE DISTRESS. WCTM.
--- NOTE | 2020-02-03 17:11 | NUR ---
NO ACUTE EVENTS THIS SHIFT. PATIENT CONTINUES TO WALK IN HALLWAYS. TOOK A LONG NAP IN AFTERNOON, ENDORSED FEELING BETTER AFTERWARD. VSS, PATIENT DENIED CHEST PAIN/PRESSURE THIS SHIFT. PLAN IS TO CONTINUE TO AWAIT TRANSFER FOR EVAL AND TREATMENT OF AORTIC ANEURYSM.
--- NOTE | 2020-02-04 05:01 | NUR ---
SHIFT SUMMARY ASSUMED CARE OF PT AT 1900. PT IS ALERT AND ORIENTED BUT HAS GRANDIOSE DELISIONS. HEART SOUNDS REGULAR, LUNG SOUNDS CLEAR, DENIES SOB/CP AT THIS TIME. PT C/O FOOT PAIN, MEDICATED PER EMAR. PT WAS VERY UPSET ABOUT HIS FOOT PAIN AND BECAME ANGRY AND SHOUTED AND CURSED THAT HE WASNT ABLE TO SEE A PODIETRIST. PT WAS REDIRECTED AND WALKED THE HALLWAYS UNTIL HE WENT TO BED AND SLEPT ALL NIGHT. CALL LIGHT IN REACH, BED IN LOWEST POSTION, WILL CONTINUE TO MONITOR UNTIL DAYSHIFT NURSE ARRIVES.
--- NOTE | 2020-02-04 15:27 | NUR ---
SHIFT SUMMARY PT IS A/O X 4 WITH NO C/O PAIN. HE DOES HAVE GRANDIOSE THINKING AT TIMES BUT ANSWERS QUESTIONS APPROPRIATELY. HE CONTINUES TO WALK THE UNIT, NOW WITH A CANE. HE CONTIUES TO REQUEST HIS TOE NAILS BE LOOKED AT AND CLIPPED THEY ARE VERY LONG AND MAKE IT DIFFICULT TO PUT HIS SHOES AND SOCKS ON WELL WALK. CARE MANAGEMENT WAS NOTIFIED OF THIS BUT WAS UNAWARE OF A RESOURCE FOR INPATIENT SERVICES. THE DR WAS CALLED WHO STATED HE COULD ORDER A PODIATRY CONSULT WHICH HE DID AND WAS CALLED IN TO DR SOLORZANO. DR SOLORZANO OFFICE CALLED TO CONFIRM RECEIPT OF THE CONSULT AND STATED THAT HE WOULD BE HERE TO SEE THE PT SOMETIME BETWEEN AND TUESDAY. THIS WAS RELAYED TO THE PT WHO WAS VERY HAPPY AND THANKFUL FOR THIS. THE PT HAS HAD NO OTHER ACUTE CHANGES AND HAS BEEN IN A VERY PLEASANT MOOD ALL DAY. HE IS RESTING IN HIS ROOM NOW AND IS ABLE TO MAKE HIS NEEDS KNOWN WHEN NEEDED.
--- NOTE | 2020-02-05 04:38 | NUR ---
SUMMARY NO ISSUES NOTED. PT WALKED FREQUENTLY DURING SHIFT. PT HAS SLEPT WELL. PT CURRENTLY SLEEPING AND BREATHING EASY. CALL LIGHT IN REACH.
--- NOTE | 2020-02-05 15:44 | NUR ---
SHIFT SUMMARY. A&OX4, INDEPENDENT IN ROOM, CONTINUES TO WALK THE HALLWAYS FREQUENTLY. PT DENIES PAIN, SOB, N/V. NO NEW CHANGES OR CONCERNS.
--- NOTE | 2020-02-06 04:58 | NUR ---
SHIFT SUMMARY- PT. HAD NO ACUTE CHANGES TO CONDITION. PT. ABLE TO MAKE HIS NEEDS KNOWN. SLEPT WELL T/O THE SHIFT. NO APPARENT DISTRESS NOTED. PT. DENIED ANY PAIN OR DISCOMFORT. AWAITING PLACEMENT. WILL CONT TO MONITOR.
--- NOTE | 2020-02-06 11:47 | NUR ---
Patient is walking around medical floor and stops to talk to me. I listen as patient tells me about his family unit complications and about his son withholding his "senior checks." Patient tells me his people are looking into it. Patient also explains that he is healthy now and ready to move on. I listen empathically, normalize patient's experience and provide companionship and a calming presence. I will continue to remain available to patient and family.
--- NOTE | 2020-02-06 15:09 | NUR ---
SUMMARY PT HAS BEEN UP, DRESSED IN STREET CLOTHES SINCE ONSET OF SHIFT. CONTINUES TO AWAIT APPROP PLACEMENT, ROAD CONDUCTOR HEAVILY INVOLVED. PT IS A/O X3, PLAEASNT/CALM AFFECT. AMBULATES FREQUENTLY IN ARELLANO w CANE, GAIT STEADY. MOST SPEECH/CONVERSATION APPROP HOWEVER @ X'S DELUSIONAL/GRANDIOSE, DR MATIAS (PSYCHE) HAS PREVIOSLY BEEN CONSULTED, MENTAL HEALTH MEDS ARE ORDERED. VSS.
--- NOTE | 2020-02-06 20:24 | NUR ---
reported off to David RN & informed PT this RN will be changing PT so bedside report complete.
--- NOTE | 2020-02-07 06:03 | NUR ---
SHIFT SUMMARY NO ACUTE CHANGES THIS SHIFT. PT WALKED THE HALLS FOR FIRST PART OF THE SHIFT. PLEASANT AND COOPERATIVE. SLEPT WELL THIS EVENING. CONTINUES TO HAVE DELUSIONAL THINKING. 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 VITAL SIGNS STABLE. WILL CONTINUE TO MONITOR.
--- NOTE | 2020-02-07 15:41 | NUR ---
summary PT IS A/O X3-4, CALM/PLEASANT AFFECT, AMBULATES TO BR IND, AMBULATES IN ARELLANO w CANE FREQUENTLY, GAIT STEADY. STATE CHR NECK PAIN/DISCOMFORT, PRN TYLENOL FOR RELIEF. 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 DR LIMON STATE NO CHANGE IN STATUS AAA REPAIR w [facility], CONTINUES ON HOLD FOR NOW. VSS.
--- NOTE | 2020-02-08 05:05 | NUR ---
CORPORATE PILOT SUMMARY Patient actually slept all night after approx 2100. No complaints of discomfort after Tylenol given for sore feet after long ambulation.
--- NOTE | 2020-02-08 19:26 | NUR ---
ASSUMED CARE. HERO IS UP WALKING THE HALLS WITH HIS CANE. VERY PLEASANT AND TALKTIVE, INTERACTING WITH SOME STAFF. SOME CONFUSION IS PRESENT WITH OCCATIONAL DULUSIONS. HE DENIES ANY PAIN, CONCERNS. ASSESSMENT IS BENIGN OTHER THEN MENTAL ASSESSMENT. ABLE TO USE CALL LIGHT, WILL CONTINUE TO MONITOR.
--- NOTE | 2020-02-08 19:38 | NUR ---
SHIFT SUMMARY- PT STILL AWAITING PLACEMENT. NO ACUTE CHANGES T/O THE DAY. MEDICATED ONCE WITH PO TYLENOL NEAR THE END OF THE SHIFT. REPORT COMPLETED WITH NIGHT YASMINE DORADO.
--- NOTE | 2020-02-08 22:30 | NUR ---
HERO IS ASLEEP ON THE FLOOR. NO SIGN OF DISTRESS NOTED. WILL CONTINUE TO MONITOR.
--- NOTE | 2020-02-09 01:37 | NUR ---
HERO CONTINUES TO SLEEP COMFORTABLY. WILL CONTINUE TO MONITOR.
--- NOTE | 2020-02-09 04:59 | NUR ---
SHIFT SUMMARY: 74 Y/O ADMITTED FOR DISECTING AORTA, AWAITING PLACEMENT. HERO HAD A GOOD NIGHT DOING HIS EVENING WALKS AROUND THE FLOOR. FOLLOWING HIS NORMAL ROUTINE. TAKING HIS MEDS AROUND 2029, DO ANOTHER FEW WALKS THEN HE WENT TO BED. HE HAS SLEPT GOOD ALL NIGHT. VS REMAINED WNL. NO ACUTE CHANGES TO REPORT.
--- NOTE | 2020-02-09 17:56 | NUR ---
SHIFT SUMMARY- PT ALERT AND ORIENTED TO SELF. 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 BUT PT TENDS TO BE MORE PLEASENT THAN NOT, CAN BE DEMANDING AT TIMES.
--- NOTE | 2020-02-10 06:18 | NUR ---
SHIFT SUMMARY A/O, ABLE TO MAKE NEEDS KNOWN. COOPERATIVE WITH CARE. ANSWERS QUESTIONS APPROPRIATELY. MADE STAFF AWARE NOT TO WAKE FOR COMMISSION FOR THE BLIND DIRECTOR VITAL SIGNS. NO C/O PAIN/DISCOMFORT. INDEPENDENT IN ROOM AND HALLWAYS. APPEARED TO REST MUCH OF NIGHT; ON FLOOR. CALL LIGHT AND BELONGINGS WITHIN REACH. WCTM. REPORT TO ONCOMING RN.
--- NOTE | 2020-02-10 17:58 | NUR ---
SHIFT SUMMARY- PT HAS BEEN A LITTLE LESS ACTIVE TODAY, C/O INCREASED FOOT DISCOMFORT BUT DECLINED ANY ADDITIONAL DOSES OF TYLENOL. PT ALERT AND ORIENTED STILL HAS DELUSIONS OF GRANDURE. NO S&S OF DISTRESS JUST A LITTLE MORE TIRED TODAY, LATE ENTRY ORDER PLACED FOR NO NIGHT VITALS FOR THE PT PER DR LIMON. PT STILL REFUSES TO SLEEP IN THE BED, HE SLEEPS ON A PINK FOAM MAT ON THE FLOOR.
--- NOTE | 2020-02-11 04:23 | NUR ---
SHIFT SUMMARY A/O, ABLE TO MAKE NEEDS KNOWN. COOPERATIVE WITH CARE. ANSWERS QUESTIONS APPROPRIATELY. INDEPENDENT IN ROOM AND HALLWAYS. NO C/O PAIN/DISCOMFORT. APPEARED TO REST MUCH OF SHIFT. VSS/AFEBRILE AT BEGINNING OF SHIFT. CONTINUES TO AWAIT PLACEMENT. NO ACUTE CHANGES NOTED. CONTINUES TO SLEEP ON FLOOR. CALL LIGHT AND BELONGINGS WITHIN REACH. WCTM. REPORT TO ONCOMING RN.
--- NOTE | 2020-02-11 16:43 | NUR ---
SHIFT SUMMARY PT AXO, COOPERATIVE WITH CARE THOUGH CONTINUES TO HAVE GRANDIOSE DELUSIONS. PT AMBULATING THE HALLWAYS THROUGHOUT THE SHIFT. NO ACUTE CHANGES THIS SHIFT. VSS. BED IN LOW POSITION, CALL LIGHT WITHIN REACH.
--- NOTE | 2020-02-12 05:08 | NUR ---
SHIFT SUMMARY PT HAS HAD NO ACUTE CHANGES THIS SHIFT, NO C/O ANY KIND, PT SLEEPING AT THIS TIME, WILL CONT TO MONITOR UNTIL REPORT GIVEN TO DAY RN.
--- NOTE | 2020-02-12 18:12 | NUR ---
SHIFT SUMMARY PATIENT MEDICATED X1 FOR PAIN IN FEET THIS AM. PATIENT UP INDEPENDENT AND WALKING LAPS IN ARELLANO TODAY. PATIENT PLEASANT AND COOPERATIVE WITH CARE. PATIENT MET WITH CARE MANAGEMENT TODAY. PATIENT DISCHARGE PENDING PLACEMENT. CALL LIGHT IN REACH.
--- NOTE | 2020-02-13 05:10 | NUR ---
SHIFT SUMMARY ASSUMED CARE OF PT AT 1900. PT IS A/OX4 WITH GRADIOUS DELUSIONS. DENIES N/T IN EXTREMITES. LUNG SOUNDS CLEAR, HEART SOUNDS REGULAR, DENIES CP/SOB AT THIS TIME. PT C/O PAIN IN HIS FEET, MEDICATED PER EMAR. NO ACUTE EVENTS DURING THE NIGHT. PT SLEPT T/O THE NIGHT. CALL LIGHT IN REACH, BED IN LOWEST POSTION, WILL CONTINUE TO MONITOR UNTIL DAYSHIFT NURSE ARRIVES.
--- NOTE | 2020-02-13 17:45 | NUR ---
SHIFT SUMMARY PATIENT DENIES PAIN, NAUSEA, AND SHORTNESS OF BREATH. PATIENT UP IN ROOM AND WALKING HALLS TODAY. EATING AND DRINKING WELL. DISCHARGE PENDING PLACEMENT.
--- NOTE | 2020-02-14 08:36 | NUR ---
SHIFT SUMMARY PT HAD AN UNEVENTFUL NIGHT. AMBULATED IN HALLS AND SLEPT T/O NIGHT. NO ACUTE EVENTS NOTED. 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 PT OTHERWISE PLEASANT AND COOPERATIVE WITH CARES, DEMANDING AT TIMES. PT UP AMBULATING IN HALLS EARLY THIS AM. DENIES NEEDS AT THIS TIME. REMINDED TO CALL WITH NEEDS.
--- NOTE | 2020-02-14 11:16 | NUR ---
Call facilitated with local curtain cutter on behalf of care management to establish guardianship arrangements for the principal. The curtain cutter will invoice the hospital, I will process the bill as a purchased service, and then when the guardian is in place she will reimburse the hospital out of the principals estate. The gaurdianship process requires approximately 30 days to activate. The principal can be dispositioned to a facility prior to the guardianship taking effect as he is fully agreeable. Thank you for this consult! Isrrael Hauser ThD
--- NOTE | 2020-02-14 12:49 | NUR ---
Patient is walking the hallways of Medical floor and pulls me aside to a bench near the elevators. Patient tells me his plans to be president and to take over the hospitals of the [place] so all patient's can be treated like humans and the poor can get the help they need. Patient tells me about his Judaism bridgette and how he has gone in many churches and not found God's presence there. Patient tells me that He is close to God and is always learning and that he needs God's help to become president. I listen empathically and provide companionship and prayer. Patient responds well and shows signs of an elevated mood. I will continue to remain available to patient and family.
--- NOTE | 2020-02-14 18:26 | NUR ---
PT ALERT, WITH OCCASIONAL DELUSSIONS AT THE BEGINING OF THE SHIFT. PT REPORT AN INCREASE OF DISCOMFORT ON HIS FEET BILATERALLY, BARIER CREAM APPLIED. PT TOLORATED MEALS WELL. PT WAS MEDICATED X1 FOR PAIN THIS SHIFT. PT HAS CALL LIGHT WITH IN REACH, WILL REPORT TO ONCOMING SHIFT.
--- NOTE | 2020-02-15 06:15 | NUR ---
SHIFT SUMMARY PT ASLEEP AT THIS TIME, REFUSED AM VITALS. LISINOPRIL HELD FOR BP OF 93/55. 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 PLEASANT AND COOPERATIVE WITH CARES OTHERWISE. NO ACUTE EVENTS NOTED T/O NIGHT. DENIES NEEDS AT THIS TIME, CALL LIGHT, POSSESSIONS IN REACH, WILL CONTINUE TO MONITOR UNTIL DAY RN ASSUMES CARE
--- NOTE | 2020-02-15 18:50 | NUR ---
SHIFT SUMMARY PT IS A&O WITH OCCASIONAL DELUSSIONS. PT REQUESTED TYLENOL X2 THIS SHIFT FOR FOOT PAIN. PT AMBULATE IN THE HALLS COUNTINOUSLY THROUGHOUT THE SHIFT. PT TOLORATED HIS MEALS WELL. PT HAS CALL LIGHT WITHIN REACH AND WILL REPORT TO ONCOMING SHIFT.
--- NOTE | 2020-02-16 04:14 | NUR ---
PT with dementia schitzophrenia & AAA that had increased size awaiting placement. Some delusions of grandure such as he said " I live in a mansion, I am going to be president" I have my own team of heart specialists. PT cooperative had DR order not to be woken at night for vitals rounds etc. He is up indep ambulates freely on unit multiple times daily with steady gait. Takes meds crushed in applesauce. Needs assist to take off & put on sock & foot care. Barrier cream applied to bilat feet at PT request.
--- NOTE | 2020-02-16 18:11 | NUR ---
SHIFT SUMMARY PT HAS BEEN AMBULATING IN HALLS THROUGH OUT THE SHIFT. MEDICATED FOR FOOT PAIN X2 THIS SHIFT. PT HAS A GOOD APPETITE. NO ACUTE CHANGES THIS SHIFT. WAITING FOR GAURDIANSHIP AND PLACEMENT. CALL LIGHT IN REACH. WILL CONTINUE TO MONITOR AND REPORT TO ONCOMING RN.
--- NOTE | 2020-02-17 05:19 | NUR ---
SHIFT SUMMARY ASSUMED CARE OF PT AT 1900. PT IS A/OX3, PT WAS VERY ANGRY AT THE BEGINNING OF THE SHIFT DUE TO THE DAYSHIFT NURSES NOT MASSAGING HIS FEET. PT WAS REDIRECTED AND CONTINUED TO WALK AROUND THE UNIT. PT WAS ALSO VERY AGITATED WHEN GIVING HIS MEDICATIONS BY DEMANDING AND PARTICILAR ABOUT HOW HE GETS HIS MEDS. NO ACUTE EVENTS DURING THE NIGHT. PT SLEPT T/O THE NIGHT. CALL LIGHT IN REACH, BED IN LOWEST POSITION, WILL CONTINUE TO MONITOR UNTIL DAYSHIFT NURSE ARRIVES.
--- NOTE | 2020-02-17 18:12 | NUR ---
SHIFT SUMMARY PT HAS BEEN IRRITABLE THIS SHIFT. PT AMBULATING IN [place] ALL SHIFT. MEDICATED FOR BILATERAL FEET PAIN WITH TYLENOL X2 THIS SHIFT. THIS RN OFFERED ICE AND HEAT FOR FEET BUT PT DECLINED AND REPORTS LOTION IS WHAT HELPS HIS FEET. COTTON AGENT PLACED LOTION TO PT'S FEET AFTER SHOWER THIS AFTENROON. NO AUCTE CHANGES THIS SHIFT. WAITING FOR GUARDIANSHIP AND PLACEMENT. CALL LIGHT IN REACH. WILL CONTINUE TO MONITOR AND REPORT TO ONCOMING RN.
--- NOTE | 2020-02-18 04:52 | NUR ---
SHIFT SUMMARY ASSUMED CARE OF PT AT 1900. PT IS A/OX3 WITH DELUSIONS. PT IS AGITATED TODAY AND UPSET THAT NOONE WILL MASSAGE HIS FEET. PT STATES HE HAS NO NEW COMPLAINTS TODAY. PT SLEPT T/O THE NIGHT, NO ACUTE EVENTS DURING THE NIGHT. CALL LIGHT IN REACH, BED IN LOWEST POSTION, WILL CONTINUE TO MONITOR UNTIL DAYSHIFT NURSE ARRIVES.
--- NOTE | 2020-02-18 11:15 | NUR ---
Patien tells me that he is frustrated about not having his checks (I think was referring to his SSI checks?) and not being able to leave. Patient tells me that he will walk it off and be fine. I engage in therapeutic listening and provide a calming presence and companionship. I will continue to remain available to patient and family.
--- NOTE | 2020-02-18 16:00 | NUR ---
SHIFT SUMMARY PT AMBULATED HALLWAY T/O DAY. PT C/O 4 LOOS BMS THIS SHIFT AND A STOMACH ACHE. PT DENIES STOMACH ACHE AT THIS TIME AFTER LYING DOWN FOR A NAP. PT IND IN ROOM. AWAITING PLACEMENT. NO CHANGES IN ASSESSMENT AT THIS TIME. VSS. WILL CONTINUE TO [place] UNTIL TURNOVER IS COMPLETE.
--- NOTE | 2020-02-19 03:59 | NUR ---
SUMMARY PT HAS SLEPT W/ OUT COMPLAINT T/O SHIFT. PT CURRENTLY SLEEPING IN NO DISTRESS. CALL LIGHT IN REACH.
--- NOTE | 2020-02-19 13:07 | NUR ---
Patient talks to me in the hallway and greets me with a hug. Patient tells me that he is leaving , no matter what and that he "just can't stay here any more. Patient explains about his plan to become president and that he is going to take Trump and give him to christopher matute in [place] and let them do as they please with him. He also talks about how once he is president he will help the poor and protect the weak. 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 I listen empathically, reinforce helpful attitudes and provide companionship and prayer. Patient responds well and shows signs of an elevated mood. I will continue to remain available to patient and family.
--- NOTE | 2020-02-19 15:14 | NUR ---
Patient asks his RN to call me back to his room. Patient tells me that Renata Ruiz has created a major breakthrough and has made it possible for him to get his SSI checks retroactive back to [facility]. He wanted to thank me for the time spent and the prayers prayed to move things forward. He aslo told me many crazy stories but they all led to appreciation for the hospital staff that have worked hard on his behalf. I prayed a prayer of gratitude and blessing for the hospital staff. Patient voiced thankfulness for coming back to rejoice with him.
--- NOTE | 2020-02-19 17:15 | NUR ---
SHIFT SUMMARY- PT IS ALERT, SOME FLIGHT OF IDEAS AND GRANDOUS DELUSIONS. HE SPENT MOST OF HIS DAY WALKING THE HALLWAY. HE REPORTED HAVING A BM THIS MORNING. HE IS PLESANT AND COOPERATIVE. HE IS EATING AND DRINKING WELL. INSTRUMENT LENS GRINDER APPRENTICE VISED TO TOUCH BASE WITH PT ABOUT DISCHARGE PLAN
--- NOTE | 2020-02-20 04:20 | NUR ---
SUMMARY NO ISSUES NOTED. PT WENT TO BED EARLY AND HAS BEEN SLEEPING T/O SHIFT. CALL LIGHT IN REACH.
--- NOTE | 2020-02-20 17:26 | NUR ---
SHIFT SUMMARY PATIENT BEGAN COMPLAINING OF STOMACH DISCOMFORT. HE REQUESTED "THE MED THE NURSE GAVE ME YESTERDAY" THIS RN GAVE HIM ZOFRAN, BASED ON WHAT WAS ADMINISTERED YESTERDAY. AFTER ABOUT 1 HR PATIENT CONTINUED TO COMPLAIN OF ABDOMINAL PAIN, POINTING IN HIS SUBSTERNAL REGION. THIS RN NOTIFIED DR. LUX, BASED ON PATIENTS HISTORY HE ORDERED AN EKG, ATIVAN PRN. EKG WAS UNCHANGED SINCE LAST IMAGING. PATIENT THEN BEGAN THROWING UP YELLOW SUBSTANCE THEN HAD CLEAR WHITE VOMIT. HE STATED HE FELT BETTER. HE IS NOW SITTING IN HIS CHAIR. THIS RN INFORMED HIM THAT HIS EKG WAS NORMAL, PATIENT STATED THIS WAS "GREAT NEWS" AND IS SITTING IN THE RECLINER. SHIFT SUMMARY PRIOR TO THE STATED INCIDENT. PATIENT WALKING HALLS, MAKING NEEDS KNOWN IN GOOD SPIRITS. WILL DISCHARGE TO [facility] TOMORROW. ARSEN, TALKING ABOUT HIS "[employer] PICKING HIM UP" STATES HE IS TO [place], THEY WILL BE WAITING FOR HIM. WALKING HALLS.
--- NOTE | 2020-02-21 04:13 | NUR ---
SHIFT SUMMARY PT CONTINUES TO COMPLAIN OF ACID REFLUX LIKE PAIN. TUMS PROVIDED. PT REPORTED RELIEF FOLLOWING. PT DID NOT EAT ANY OF HIS DINNER, STATING THAT HE HAD "TOO MUCH PAIN TO EAT" AND COMPLAINING THAT THE FOOD WAS COLD. PT AGITATED THIS EVENING. PERHAPS ANXIOUS FOR PLANNED DISCHARGE TODAY. ALTHOUGH PT DENIES THIS THE REASON AND IS UNABLE TO PROVIDE REASON FOR INCREASED AGITATION. ATIVAN 1 MG PO GIVEN. PT SLEPT FOR REMAINDER OF THE EVENING. VITAL SIGNS STABLE.
[2020-02-21] MEDS ORDERED: Seroquel Xr50 MG PO (10:10)
--- NOTE | 2020-02-21 12:44 | NUR ---
[facility] conducted. Patient greets me with a hug in the hallway outside patient's room. 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 I listen empathically and affirm patient's great intentions. I will continue to remain available.
--- NOTE | 2020-02-21 15:09 | NUR ---
PATIENT WAS AMBULATING OUT TO [facility] WITH COLOR PASTE MIXING SUPERVISOR ESCORT FOR DISCHARGE WHEN HE ASKED ABOUT HIS DISCHARGE PAPERWORK AT 1425. WHEN NURSE WENT TO MEET PATIENT TO DISCUSS DISCHARGE PAPERWORK WITH PATIENT, AMI PRITCHETT STATED THAT PATIENT NEEDED TO BE HELD R/T APD, SEE AMI'S NOTE. PT NOW IN ROOM COMPLAINING OF RUQ PAIN, 07/05, [place]. DR LUX NOTIFIED, NEW ORDERS INITIATED. PT DENIES HAVING GALLBLADDER REMOVED. PT MEDICATED FOR GERD AMND NV WELL.
--- NOTE | 2020-02-21 15:52 | NUR ---
report given to gildardo jiang who will assume care at this time
--- NOTE | 2020-02-21 15:53 | NUR ---
REPORT FROM YASMINE DIOR. WILL ASSUME CARE OF PT. PT CURRENTLY LYING ON THE FLOOR ON EGGCRATE, CONTINUES TO COMPLAIN OF ABD PAIN AFTER ZOFRAN AND TUMS. U/S SCHEDULED FOR THIS EVENING. KPAD GIVEN.
--- NOTE | 2020-02-21 17:37 | NUR ---
PT CONT TO C/O RUQ PAIN RADIATING TO THE BACK, PT REPORTS KPAD INNEFECTIVE. PT CONTINUOUSLY REPORTS HE WORRIED HE IS. PT REQUESTING TO SEE IF U/S CAN BE DONE EARLIER. I CALLED AND SPOKE WITH U/S [employer] WHO REPORTS 1899 IS WHEN IT IS SCHEDULED FOR AND PT NEEDS TO REMAIN NPO AT THIS TIME. PT TAKES MEDS WITH A.S. AND TECH REQUESTS TO BE HELD IF POSSIBLE. EVENING MEDS HELD AT THIS TIME AND PT UPDATED AND REPORTS HE WILL WAIT.
--- NOTE | 2020-02-21 18:40 | NUR ---
ABD U/S COMPLETED, U/S TECH REPORTS LARGE AMOUNT OF GAS AND CONCERNING GALLBLADDER. WILL AWAIT DICTATION FROM RADIOLOGIST AND NOTIFY NIGHT RN. PT REPORTS HE IS FEELING BETTER AFTER TECH PUSHED ON ABD AND REPORTS PASSING LOTS OF GAS. MIRALAX AND TYLENOL GIVEN PER EMAR, PT UP AMBULATING IN HALLS AND REQUESTING FOOD AT THIS TIME.
--- NOTE | 2020-02-22 05:23 | NUR ---
SHIFT SUMMARY PT HAD UNEVENTFUL NIGHT. WHEN ASKED ABOUT PT'S ABD PAIN PT SAID, "ITS MUCH BETTER". RATING IT 3/10. NO PRN MEDICATION REQUIRED THIS EVENING. PT NOT UP WALKING THE HALLS MUCH THIS EVENING HOWEVER PT DID MAKE SEVERAL LABS BEFORE BED TIME. PT SLEPT THROUGH MUCH OF THE NIGHT. NO AGITATION THIS EVENING. VITAL SIGNS STABLE. NO ACUTE CHANGES. WILL CONTINUE TO MONITOR AND REPORT TO DAY RN.
--- NOTE | 2020-02-22 13:19 | NUR ---
PT DISCHARGED FROM THE UNIT AT 1315, LEFT VIA WHEEL CHAIR. [facility] HAS BEEN ARRANGED AND WILL OBSTETRIC ASSISTANT. DISCHARGE INSTRUCTIONS REVIEWED. DR. ADAIR OFFICE WILL CALL TO SCHEDULE FOLLOW UP APT. DISCHARGE INSTRUCTIONS REVIEWED.
--- NOTE | 2020-02-25 14:49 | NUR ---
Late entry for service provided on 02/21/20. New information came to my attention regarding the declining neurocognitive status of the principal and the need for initiating an emergency guardianship arrangement. In collaboration with care management, and the legal office of Vicki Leonard, an affidavit supporting the motion to waive the prior notice of temporary guardianship, and a petition for an emergency ad litem was filed with the court and approved. Subsequently, the conservator, provider and CM coordinated a safe discharge.
== END 2020-02-22 13:30 | disposition home or self-care (01) ==
LOC: MEDS 17:40
PROVIDERS: ADMIT Hospitalist
DX: I71.01 Dissection of thoracic aorta (principal); F20.9 Schizophrenia, unspecified; L60.2 Onychogryphosis; I13.0 Hypertensive heart and chronic kidney disease with heart failure and stage 1 through stage 4 chronic kidney disease, or unspecified chronic kidney disease; I50.42 Chronic combined systolic (congestive) and diastolic (congestive) heart failure; E11.22 Type 2 diabetes mellitus with diabetic chronic kidney disease; N18.9 Chronic kidney disease, unspecified; I25.10 Atherosclerotic heart disease of native coronary artery without angina pectoris; E78.5 Hyperlipidemia, unspecified; F17.210 Nicotine dependence, cigarettes, uncomplicated; I25.2 Old myocardial infarction; Z59.0 Homelessness; Z79.899 Other long term (current) drug therapy; Z79.82 Long term (current) use of aspirin; Z79.84 Long term (current) use of oral hypoglycemic drugs; Z88.5 Allergy status to narcotic agent; Z95.1 Presence of aortocoronary bypass graft; F01.50 Vascular dementia, unspecified severity, without behavioral disturbance, psychotic disturbance, mood disturbance, and anxiety
CPT/HCPCS: 76705; 82947; 93005; 93010; 94760; 97165; 97168; 97535; A9270; A9270-GY; G0378

== ENCOUNTER 2020-02-22 20:39 | Emergency (ER) | payer MEDICARE ==
[~2020-02-22] VITALS: Ht 170.2 cm; Wt 79.4 kg
[~2020-02-22 20:39] MED LIST changes: +ACET500 PO; +ARTIFICIAL TEAR15 M1 BOTHEYES; +ATOR80 PO; +AYR SALINE; +B-121000 MC3 PO; +BISA10S PR; +CARVEDILOL12.5 MG PO; +DICLOFENAC SOD100 G1 TOP; +Humalog100 UNIT/3 SC; +Loratadine10 MG PO; +MELA3 PO; +METF500 PO; +MIRALAX17 GM PO; +NITR.4SL SL; +ONDA4ODT MM; +Q-Tussin100 MG/5 M PO; +RISP.5 PO; +RISP2 PO; +SENNA PLUS 8.61 EACH PO; +Seroquel Xr50 MG PO; +TRAZ50 PO
== END 2020-02-22 21:49 | disposition home or self-care (01) ==
LOC: ER 20:39
DX: F20.9 Schizophrenia, unspecified (principal); I10 Essential (primary) hypertension; E11.9 Type 2 diabetes mellitus without complications; Z59.0 Homelessness; Z91.013 Allergy to seafood; Z88.5 Allergy status to narcotic agent; Z91.018 Allergy to other foods; Z79.82 Long term (current) use of aspirin; Z79.899 Other long term (current) drug therapy; Z79.84 Long term (current) use of oral hypoglycemic drugs
CPT/HCPCS: 99282

== ENCOUNTER 2020-02-29 15:09 | Emergency (ER) | payer MEDICARE ==
[~2020-02-29] VITALS: Ht 170.2 cm; Wt 76.2 kg
[2020-02-29 16:18] LABS: BASOPHILS ABSOLUTE AUTO 0.04 K/mm3 (0.00-0.23); BASOPHILS PERCENT AUTO 0 % (0-2); EOSINOPHILS ABSOLUTE AUTO 0.33 K/mm3 (0.00-0.68); EOSINOPHILS PERCENT AUTO 4 % (0-6); Hematocrit 42.8 % (37.0-53.0); Hemoglobin 13.9 g/dL (13.5-17.5); IMMATURE GRAN ABSOLUTE AUTO 0.02 K/mm3 (0.00-0.10); IMMATURE GRAN PERCENT AUTO 0 % (0-1); LYMPHOCYTES ABSOLUTE AUTO 1.12 K/mm3 (0.84-5.20); LYMPHOCYTES PERCENT AUTO 13 % (21-46); MONOCYTES ABSOLUTE AUTO 0.65 K/mm3 (0.16-1.47); MONOCYTES PERCENT AUTO 7 % (4-13); Mean Corpuscular HGB Conc 32.5 g/dL (31.5-36.5); Mean Corpuscular Volume 95 fL (80-100); Mean Platelet Volume 9.8 fL (9.1-12.4); NEUTROPHILS ABSOLUTE AUTO 6.77 K/mm3 (1.96-9.15); NEUTROPHILS PERCENT AUTO 76 % (41-73); Platelet Count 200 K/mm3 (150-400); RDW Coefficient Variation 13.8 % (11.7-14.2); RDW Standard Deviation 47.7 fL (35.1-46.3); Red Blood Cell Count 4.49 M/mm3 (4.30-5.90); White Blood Cell Count 8.93 K/mm3 (4.00-11.30)
[2020-02-29 16:38] LABS: Alanine Aminotransfer (ALT/SGP 54 U/L (12-78); Albumin, Blood 3.6 g/dL (3.4-5.0); Albumin/Globulin Ratio 0.8 (0.8-1.8); Alk Phos 103 U/L (50-136); Anion Gap 6 mmol/L (6-16); Aspartate Aminotrans (AST/SGOT 30 U/L (12-37); Bilirubin, Total 0.8 mg/dL (0.1-1.0); Blood Urea Nitrogen 28 mg/dL (8-24); Bun/Creatinine Ratio 26.4 (12.0-20.0); CO2, Blood 24 mmol/L (21-32); Calcium, Blood 9.8 mg/dL (8.5-10.1); Chloride, Blood 115 mmol/L (98-108); Creatinine, Blood 1.06 mg/dL (0.60-1.20); Globulin, Blood 4.3 g/dL (2.2-4.0); Glomerular Filtration Rate >60 (60-); Glucose, Blood 109 mg/dL (70-99); Potassium, Blood 4.1 mmol/L (3.5-5.5); Sodium, Blood 145 mmol/L (136-145); Total Protein, Blood 7.9 g/dL (6.4-8.2)
[2020-02-29 19:01] LABS: Source, Urine Clean Catch
[2020-02-29 19:09] LABS: Bilirubin, Urine Neg (Neg); Blood, Urine 2+ (Neg); Glucose Qualitative, Urine Neg (Neg); Ketones, Urine Neg (Neg); Leukocyte Esterase, Urine Neg (Neg); Nitrite, Urine Neg (Neg); Protein, Urine 3+ (Neg); Urobilinogen, Urine NORM (Normal)
[2020-02-29 19:20] LABS: Appearance, Urine Clear (Clear); Color, Urine Yellow (P-Yellow)
[2020-02-29 19:21] LABS: White Blood Cells, Urine 0-2 /hpf (0-5)
[2020-02-29 19:22] LABS: Bacteria Few /hpf; Squamous Epithelial Cells Few /hpf (Few)
[2020-02-29] MEDS ORDERED: ONDA4ODT SL (19:54)
== END 2020-02-29 20:03 | disposition home or self-care (01) ==
LOC: ER 15:09
PROVIDERS: Physician Assistant
DX: R10.9 Unspecified abdominal pain (principal); Z88.5 Allergy status to narcotic agent; Z91.013 Allergy to seafood; Z91.018 Allergy to other foods; Z79.82 Long term (current) use of aspirin; Z79.84 Long term (current) use of oral hypoglycemic drugs; Z79.899 Other long term (current) drug therapy; E11.9 Type 2 diabetes mellitus without complications; I50.9 Heart failure, unspecified; I25.810 Atherosclerosis of coronary artery bypass graft(s) without angina pectoris; E78.5 Hyperlipidemia, unspecified; F20.9 Schizophrenia, unspecified; M10.9 Gout, unspecified
CPT/HCPCS: 36415; 74177; 80053; 81001; 83690; 85025; 96361; 96374-59; 96375; 99284-25; J1200; J2765; J7030; Q9967